=== PATIENT | male | born 1960 | race Caucasian/White ===

== ENCOUNTER 2017-07-17 07:15 | Inpatient (IN) | payer BC ==
[2017-07-17] VITALS (7 sets, daily range): BP systolic 125–144; BP diastolic 78–93; PULSE 64–77; TEMP 36.6–36.9; O2SAT 95–100; Ht 172.7 cm; Wt 85.3 kg
[~2017-07-17] VITALS: Ht 172.7 cm; Wt 85.3 kg
[2017-07-17] MEDS ORDERED: SODIUM CHLORIDE 0.9% 1000ML 1,000 ML IV SCH (07:48)
--- NOTE | 2017-07-17 08:09 | DIAGNOSTIC IMAGING REPORT ---
HEAD WITHOUT CONTRAST (CT) CT DOSE: 614.27 mGy.cm HISTORY: Mental status change Stroke TECHNIQUE: Multiaxial CT images of the head were performed without the use of intravenous contrast. A dose lowering technique was utilized adhering to the principles of ALARA. Comparison: None. Findings: The paranasal sinuses and mastoid air cells are clear. The calvarium and skull base are intact. The ventricles and sulci are within normal limits. There is no mass, hematoma, midline shift, or acute infarct. Impression: No acute intracranial abnormality. The above report was generated using voice recognition software. It may contain grammatical, syntax or spelling errors. Electronically signed by: Dillan Marie M.D. 07/17/2017 8:07 AM Dictated Date/Time: 07/17/2017 8:06 AM
[2017-07-17] MEDS ORDERED: METF1000 PO (08:10)
[2017-07-17] MEDS ORDERED: DOXY-300 PO (08:11)
[2017-07-17 08:12] LABS: BLOOD UREA NITROGEN 19 mg/dl (7-18); BUN/CREATININE RATIO 16.6 (10-20); CALCIUM 9.1 mg/dl (8.5-10.1); CARBON DIOXIDE 23 mmol/L (21-32); CHLORIDE 108 mmol/L (98-107); CREATININE 1.14 mg/dl (0.60-1.40); GLUCOSE 188 mg/dl (70-99); PARTIAL THROMBOPLASTIN RATIO 0.9; POTASSIUM 3.5 mmol/L (3.5-5.1); PROTHROMBIN TIME (PATIENT) 10.8 SECONDS (9.0-12.0); SODIUM 140 mmol/L (136-145)
--- NOTE | 2017-07-17 08:13 | EMERGENCY ROOM VISIT NOTE ---
History First contact with patient: 07:25 Chief Complaint: NEURO SYMPTOMS Stated Complaint: MEMORY LOSS,DIZZY,CONFUSION Nursing Triage Summary: Pt ambulatory to B2. Reports that approx 0630 he experienced some confusion. States when he woke up he had no water at home and called family members to come help him pull the well pump. present at bedside states approx [id number] pt called her 5x. Pt does not recall this. Pt unable to recall what he did yesterday or what he ate last night. Son showed pt a picture of what they worked on yesterday and that did trigger pts memory. Pt denies h/a, dizziness, lightheadedness. Pt reports he is currently taking Doxy for Lyme's. After it was started he was called and told Lyme's was neg, but to continue taking it. states that pts pajamas were soaked with sweat last night, states this happens intermittently over the past couple months. History of Present Illness The patient is a 57 year old male with a history of type 2 Diabetes, vertigo, hypertension and hypercholesterolemia who presents to the Emergency Room with complaints of memory loss, confusion and headache. His reports that he was last well at 6:30AM. As per his , this morning, he woke up drenched in sweat , which has been happening intermittently in the last month, but has never been worked up by a doctor. He was behaving normally, not having any trouble with gait, speech, vision or limb weakness. He then realized he had no water in the house and called his family members to come help him pull up the well pump. The well is out in the yard. Afterwards, he went to work and subsequently became confused, called his son and multiple times as he could not recall where they were, where he was, and the events of the morning. When asked in the ED what he last remembers, he is unable to recall events in the morning or last night. Once his son and reminded him of previous events, he was able to recall them. He denies abdominal pain, chest pain, shortness of breath, and states he has otherwise been well recently. He reports an 8/10 headache over his TMJ and frontal region, and states that he frequently gets these types of headaches, however this one is worse. He is unsure of the onset. He denies photophobia, neck stiffness, or visual changes. He was recently (last week) worked up for Lyme's disease as his white cell count and MCV were found to be elevated, however his Lyme's titre came back negative. He is still taking the full course of doxycycline, and has 7 days left. Of note, he has had an unintentional 10 pound weight loss in the last month. He has type 2 diabetes, and has been on metformin for the last 2 years. No recent changes to his medications. He did not check his blood sugar levels this morning.\ He denies recent alcohol consumption and recreational drug use, and is not a smoker. No recent travel. Review of Systems See HPI for pertinent positives & negatives. A total of 10 systems reviewed and were otherwise negative. Past Medical/Surgical History Medical Problems: (1) Diabetes mellitus, type II (2) HLD (hyperlipidemia) (3) HTN (hypertension) PMH: Hypertension, Hypercholesterolemia, Vertigo Social History Smoking Status: Never Smoker Alcohol Use: occasionally Drug Use: none Marital Status: Housing Status: lives with family Occupation Status: employed Current/Historical Medications Scheduled Aspirin (Aspirin EC Low Dose), 81 MG PO DAILY Doxycycline (Monohydrate) (Doxycycline), 100 MG PO BID Lisinopril (Zestril), 40 MG PO DAILY Metformin Hcl (Glucophage), 1 TAB PO BID Rosuvastatin Calcium (Crestor), 10 MG PO DAILY Allergies No known drug allergies Physical Exam Vital Signs Date Time Temp Pulse Resp B/P (MAP) Pulse Ox O2 Delivery O2 Flow Rate FiO2 07/17/17 11:00 98 Room Air 07/17/17 10:35 69 18 142/89 98 Room Air 07/17/17 08:14 81 18 149/92 98 Room Air 07/17/17 07:40 96 Room Air 07/17/17 07:31 83 07/17/17 07:20 36.6 89 18 176/91 97 Room Air Physical Exam HEENT: Head - normocephalic and atraumatic. Pupils are equal, round, and reactive to light. Extraocular eye muscles are intact and sclera are anicteric. Ears - bilaterally patent canals with noninjected tympanic membranes and no evidence of hemotympanum. Nose - moist nasal mucosa without discharge. Mouth - moist buccal mucosa. Oropharynx is nonerythematous and there is no tonsillar exudate or edema noted. Neck: Supple; no JVD, nuchal rigidity, cervical lymphadenopathy, or auscultated bruits. Heart: Regular rate and rhythm. There is a normal S1 and S2 with no murmurs, clicks, or gallops appreciated. Lungs: Clear to auscultation bilaterally with no wheezes, rales, or rhonchi. Abdomen: Soft, completely nontender, nondistended, with good bowel sounds. There are no palpable pulsatile masses or hepatosplenomegaly. There is no guarding, rigidity, or rebound noted. Extremities: No evidence of cyanosis, clubbing, or edema. There are easily palpable peripheral pulses. Neuro:The patient is awake and alert, oriented to day, time, and place. He is unable to recall events from earlier this morning or last night, however is able to recall past events beyond this. Muscle strength is 5/5 in all 4 extremities. The patient has equal home visitor home base head start strength and equal pedal push and pull. There are no cerebellar signs. Medical Decision & Procedures ER Provider Diagnostic Interpretation: HEAD WITHOUT CONTRAST (CT) CT DOSE: 614.27 mGy.cm HISTORY: Mental status change Stroke TECHNIQUE: Multiaxial CT images of the head were performed without the use of intravenous contrast. A dose lowering technique was utilized adhering to the principles of ALARA. Comparison: None. Findings: The paranasal sinuses and mastoid air cells are clear. The calvarium and skull base are intact. The ventricles and sulci are within normal limits. There is no mass, hematoma, midline shift, or acute infarct. Impression: No acute intracranial abnormality. CHEST ONE VIEW PORTABLE CLINICAL HISTORY: Stroke COMPARISON STUDY: No previous studies for comparison. FINDINGS: The cardiac and mediastinal contours are normal. There is no evidence of focal pulmonary consolidation. There is no evidence of failure. No pleural effusions are visualized.[ IMPRESSION: No active disease in the chest. Laboratory Results 07/17/17 07:30 Red Blood Count 5.00, Mean Corpuscular Volume 81.4, Mean Corpuscular Hemoglobin 28.4, Mean Corpuscular Hemoglobin Concent 34.9, Mean Platelet Volume 12.1, Neutrophils (%) (Auto) 65.9, Lymphocytes (%) (Auto) 26.0, Monocytes (%) (Auto) 6.0, Eosinophils (%) (Auto) 1.7, Basophils (%) (Auto) 0.2, Neutrophils # (Auto) 2.76, Lymphocytes # (Auto) 1.09, Monocytes # (Auto) 0.25, Eosinophils # (Auto) 0.07, Basophils # (Auto) 0.01 07/17/17 07:30 Test 07/17/17 07:22 07/17/17 07:30 07/17/17 08:10 07/17/17 09:25 Bedside Glucose 174 mg/dl (70-99) White Blood Count 4.19 K/uL (4.8-10.8) Red Blood Count 5.00 M/uL (4.7-6.1) Hemoglobin 14.2 g/dL (14.0-18.0) Hematocrit 40.7 % (42-52) Mean Corpuscular Volume 81.4 fL (80-100) Mean Corpuscular Hemoglobin 28.4 pg (25-34) Mean Corpuscular Hemoglobin Concent 34.9 g/dl (32-36) Platelet Count 115 K/uL (130-400) Mean Platelet Volume 12.1 fL (7.4-10.4) Neutrophils (%) (Auto) 65.9 % Lymphocytes (%) (Auto) 26.0 % Monocytes (%) (Auto) 6.0 % Eosinophils (%) (Auto) 1.7 % Basophils (%) (Auto) 0.2 % Neutrophils # (Auto) 2.76 K/uL (1.4-6.5) Lymphocytes # (Auto) 1.09 K/uL (1.2-3.4) Monocytes # (Auto) 0.25 K/uL (0.11-0.59) Eosinophils # (Auto) 0.07 K/uL (0-0.5) Basophils # (Auto) 0.01 K/uL (0-0.2) RDW Standard Deviation 38.2 fL (36.4-46.3) RDW Coefficient of Variation 12.9 % (11.5-14.5) Immature Granulocyte % (Auto) 0.2 % Immature Granulocyte # (Auto) 0.01 K/uL (0.00-0.02) Platelet Estimate DECREASED Prothrombin Time 10.8 SECONDS (9.0-12.0) Prothromb Time International Ratio 1.0 (0.9-1.1) Activated Partial Thromboplast Time 23.6 SECONDS (21.0-31.0) Partial Thromboplastin Ratio 0.9 Anion Gap 9.0 mmol/L (3-11) Est Creatinine Clear Calc Drug Dose 75.4 ml/min Estimated GFR () 81.7 Estimated GFR (Non- 70.5 BUN/Creatinine Ratio 16.6 (10-20) Calcium Level 9.1 mg/dl (8.5-10.1) Total Creatine Kinase 161 U/L (39-308) Creatine Kinase MB 1.9 ng/ml (0.5-3.6) Creatine Kinase MB Ratio 1.2 (0-3.0) Troponin I < 0.015 ng/ml (0-0.045) Carboxyhemoglobin 0.0 % THgb Urine Color YELLOW Urine Appearance CLEAR (CLEAR) Urine pH 5.0 (4.5-7.5) Urine Specific [place] 1.023 (1.000-1.030) Urine Protein TRACE (NEG) Urine Glucose (UA) NEG (NEG) Urine Ketones NEG (NEG) Urine Occult Blood NEG (NEG) Urine Nitrite NEG (NEG) Urine Bilirubin NEG (NEG) Urine Urobilinogen NEG (NEG) Urine Leukocyte Esterase NEG (NEG) Urine WBC (Auto) 1-5 /hpf (0-5) Urine RBC (Auto) 0-4 /hpf (0-4) Urine Hyaline Casts (Auto) 1-5 /lpf (0-5) Urine Epithelial Cells (Auto) 0-5 /lpf (0-5) Urine Bacteria (Auto) NEG (NEG) Urine Opiates Screen NEG (NEG) Urine Methadone, Qualitative NEG (NEG) Urine Barbiturates NEG (NEG) Urine Phencyclidine (PCP) Level NEG (NEG) Ur Amphetamine/Methamphetamine NEG (NEG) MDMA (Ecstasy) Screen NEG (NEG) Urine Benzodiazepines Screen NEG (NEG) Urine Cocaine Metabolite NEG (NEG) Urine Marijuana (THC) NEG (NEG) Test 07/17/17 09:44 CSF Color COLORLESS CSF Appearance CLEAR CSF WBC 11 /uL (0-5) CSF RBC 0 /uL (0) CSF Polynuclear WBCs 0.0 % CSF Mononuclear WBCs 100.0 % CSF Xanthrochromic NO XANTHOCHROMIA CSF Cell Count Tube # 4 CSF Chemistry Tube # 2 CSF Glucose 76 mg/dl (40-70) CSF Total Protein 60.0 mg/dl (15.0-45.0) Medications Administered Medications (Trade) Dose Ordered Sig/Jennifer Route Start Time Stop Time Status Last Admin Dose Admin Sodium Chloride 1,000 ml @ 100 mls/hr Q10H IV 07/17/17 07:48 07/17/17 11:51 DC 07/17/17 08:10 50 MLS/HR ED Course 7:35: The patient was seen and evaluated in room B2. 7:45: The case was discussed with the attending doctor, Dr. Zuniga 8:00: The patient was seen and evaluated again with Dr. Zuniga 8:25: The patient was re-evaluated. He is sitting up comfortably. He reports his headache remains but that he does not wish to have any medication for it. He is better able to recall events from last night, but is still unable to remember events this morning. 9:15: Consulted with Dr. Espana (neurology), and given the fact that his headache and memory loss have persisted, she recommends admitting him, and doing a lumbar puncture as well as an MRI with and without contrast. 9:25: I explained the plan to the patient, and he consented to being admitted, the LP and MRI. 9:35: Lumbar puncture performed with Dr. Zuniga. The patient tolerated the procedure well and vitals post-procedure were normal, see procedure note for full details. 10:00: Spoke with hospitalist Lexi Blanchard regarding admitting Mr. Perez for further workup Medical Decision Mr. Perez is a 57 year old gentleman with a history of type 2 diabetes, hypertension, and hypercholesterolemia who presented to the ED with memory loss , confusion and a headache. His CBC shows thrombocytopenia with a platelet level of 115, but otherwise his CMP, carboxyhemoglobin and coagulation panel are normal. I discussed the case with Dr. Espana who agrees that in light of his headache, and the fact that he is still unable to recall the events of his morning, he warrants admission and further workup including a spinal tap, and MRI with and without contrast. Impression Primary Impression: Memory deficit Additional Impression: Headache Departure Information Dispostion Admitted as an inpatient Referrals Valentino Fan D.O. (PCP) Patient Instructions My [facility] Resident Tracking Resident Involvement: Resident Care Provided Care Provided: Adult Hospital Medicine Problem Qualifiers
--- NOTE | 2017-07-17 08:15 | DIAGNOSTIC IMAGING REPORT ---
CHEST ONE VIEW PORTABLE CLINICAL HISTORY: Stroke COMPARISON STUDY: No previous studies for comparison. FINDINGS: The cardiac and mediastinal contours are normal. There is no evidence of focal pulmonary consolidation. There is no evidence of failure. No pleural effusions are visualized.[ IMPRESSION: No active disease in the chest. Electronically signed by: Logan Goel M.D. 07/17/2017 8:13 AM Dictated Date/Time: 07/17/2017 8:11 AM
[2017-07-17 08:22] LABS: CKMB/CK RATIO 1.2 (0-3.0)
[2017-07-17 08:36] LABS: HEMATOCRIT 40.7 % (42-52); MEAN CELL VOLUME 81.4 fL (80-100); MEAN CORPUSCULAR HEMOGLOBIN 28.4 pg (25-34); MEAN CORPUSCULAR HGB CONC 34.9 g/dl (32-36); MEAN PLATELET VOLUME 12.1 fL (7.4-10.4); PLATELET COUNT 115 K/uL (130-400); WHITE BLOOD COUNT 4.19 K/uL (4.8-10.8)
[2017-07-17 08:37] LABS: BASO % 0.2 %; BASO ABS # 0.01 K/uL (0-0.2); COMPLETE YES; EOS % 1.7 %; IG% 0.2 %; LYMPH ABS # 1.09 K/uL (1.2-3.4); NEUT % 65.9 %; PLT ESTIMATE DECREASED
--- NOTE | 2017-07-17 09:15 | EMERGENCY ROOM VISIT NOTE ---
ED Visit Note First contact with patient: 07:25 Resident Physician Supervision Note: I was present with Dr. Chen during the history and exam. I discussed the case with the resident and agree with the findings and plan as documented in the note. Documented By: Osvaldo Zuniga
[2017-07-17 09:40] LABS: URINE APPEARANCE CLEAR (CLEAR); URINE BILIRUBIN NEG (NEG); URINE COLOR YELLOW; URINE EPITHELIAL CELL AUTO 0-5 /lpf (0-5); URINE NITRITE NEG (NEG); URINE SPECIFIC GRAVITY 1.023 (1.000-1.030); UROBILINOGEN NEG (NEG); ZZUR CULT IF INDIC CLEAN CATCH NO
[2017-07-17 09:46] LABS: MANUAL MICROSCOPIC REQUIRED? NO; REVIEW REQ? NO
--- NOTE | 2017-07-17 09:49 | Procedure Note ---
Procedure Note Procedure Date Jul 17, 2017. Procedure Description Procedure Name: Lumbar Puncture Indication: Headache and altered mental status. Verbal consent was obtained after the risks and benefits were explained, including but not limited to headache, bleeding/clotting, scarring, infection, pain, and bone/joint/nerve damage. At this time, the risks of the procedure are less than the risks of NOT performing the procedure. A time out was taken and the correct patient and site identified. The patient was placed in the seated position and the back was prepped with betadine and draped in the standard fashion. The L3 intervertebral space was identified, anesthetized locally with 1 % lidocaine without epinephrine, and the spinal needle was inserted through the skin with the bevel parallel to the dural fibers. The needle was carefully advanced into the lumbar cistern and 4 tubes of clear CSF was obtained. The stylet was replaced and the needle was removed. A bandaid was placed and the patient was placed in the supine position. The patient tolerated the procedure well and there were no complications. Time of procedure: 09:30 Performed by: attending, resident Indications: diagnostic Contraindications: none Complications: none Patient tolerated procedure: well Post-procedure vital signs: reviewed and stable
[2017-07-17 10:16] LABS: BENZODIAZEPINE, URINE NEG (NEG); COCAINE,URINE NEG (NEG); PHENCYCLIDINE, URINE NEG (NEG)
[2017-07-17] MEDS ORDERED: GLUCAGON FOR INJ 1 MG VIAL SQ PRN (11:15)
[2017-07-17] MEDS ORDERED: GLUCOSE 10 TABS/TUBE PO PRN (11:15)
[2017-07-17] MEDS ORDERED: ONDANSETRON INJ 2 MG/ML 2 ML VIAL IV PRN (11:15)
[2017-07-17] MEDS ORDERED: ACETAMINOPHEN 325 MG TAB PO PRN (11:15)
[2017-07-17] MEDS ORDERED: GLUCOSE 40% GEL 15 GM TUBE PO PRN (11:15)
[2017-07-17] MEDS ORDERED: DEXTROSE 50% 50 ML SYR IV PRN (11:15)
[2017-07-17 11:21] LABS: CSF APPEARANCE CLEAR; CSF COLOR COLORLESS
[2017-07-17 11:22] LABS: CSF XANTHOCHROMIC NO XANTHOCHROMIA
--- NOTE | 2017-07-17 11:36 | History and Physical ---
History & Physical Date & Time of Service: Jul 17, 2017 at 11:23 Chief Complaint: Memory Loss,Dizzy,Confusion Primary Care Physician: Valentino Fan D.O. History of Present Illness Source: patient, spouse, clinic records, hospital records This is a 57yo M with a PMH of DM II, HTN and HLD who presents after a 45 minute period of memory loss and confusion earlier this morning. Patient woke up around 5am in a normal state of health. Per , patient had sweat through pajamas during the night, but states that has occurred multiple times in the past few months. The patient then noticed his water was not working so he called his son to help adjust the water pump. Afterwards, the patient's son left and he worked in the garage. From 6:40-7:10am, patient called his 5 times asking where he was and where she was. Told her that he didn't feel normal. Did not remember the proceeding events of the morning or that his son had just left. called son to bring the patient into the ER for further evaluation. Patient does not remember the ride over to the hospital or the time spent in the waiting room. Memory impairment resolved once patient got to ER room but is still unclear about previous events. Currently, patient endorses feeling "flushed" in the face and has a 6/10 throbbing headache above bilateral ears. Denies fever, chills, lightheadedness, visual changes, neck stiffness, difficulty with speech, palpitations, CP, SOB, abd pain, nausea/vomiting, difficulty with ambulation or any focal neurological deficits. Has chronic headaches but pain is more severe today. Denies any history of stroke, heart disease. Endorses an intentional 10# weight loss in the last few months. Last week, patient was evaluated by PCP for facial pain, headache, chills. Was started on doxycycline prophylactically for Lyme disease. Titer came back negative but patient was encouraged to complete course of antibiotics due to slight leukocytosis of 11.2. Past Medical/Surgical History Medical Problems: (1) Diabetes mellitus, type II Status: Chronic (2) HLD (hyperlipidemia) Status: Chronic (3) HTN (hypertension) Status: Chronic Family History Diabetes mellitus FATHER Hypertension FATHER Social History Smoking Status: Never Smoker Alcohol Use: socially (1-2 drinks/month ) Drug Use: none Marital Status: Housing status: lives with significant other Occupational Status: employed Multi-Drug Resistant Organisms History of MDRO: No Allergies Coded Allergies: No Known Allergies (Verified , 07/17/17) Home Medications Scheduled Aspirin (Aspirin EC Low Dose), 81 MG PO DAILY Doxycycline (Monohydrate) (Doxycycline), 100 MG PO BID Lisinopril (Zestril), 40 MG PO DAILY Metformin Hcl (Glucophage), 1 TAB PO BID Rosuvastatin Calcium (Crestor), 10 MG PO DAILY Review of Systems Ten systems reviewed and negative except as noted in the HPI. Physical Exam Vital Signs Date Time Temp Pulse Resp B/P (MAP) Pulse Ox O2 Delivery O2 Flow Rate FiO2 07/17/17 11:00 98 Room Air 07/17/17 10:35 69 18 142/89 98 Room Air 07/17/17 08:14 81 18 149/92 98 Room Air 07/17/17 07:40 96 Room Air 07/17/17 07:31 83 07/17/17 07:20 36.6 89 18 176/91 97 Room Air General Appearance: WD/WN, no apparent distress Head: normocephalic, atraumatic Eyes: normal inspection, PERRL, EOMI, sclerae normal (Conjunctiva normal ) ENT: normal ENT inspection, hearing grossly normal, pharynx normal (Moist mucous membranes ), + pertinent finding (Neck with full ROM) Neck: supple, no adenopathy, thyroid normal, trachea midline Respiratory/Chest: chest non-tender, lungs clear, normal breath sounds, no respiratory distress, no accessory muscle use Cardiovascular: regular rate, rhythm, no edema, no murmur, normal peripheral pulses Abdomen/GI: normal bowel sounds, non tender, soft, no organomegaly Back: normal inspection Extremities/Musculoskelatal: normal inspection, no calf tenderness, normal capillary refill, no pedal edema Neurologic/Psych: service advisor II-XII nml as tested, no motor/sensory deficits (Normal gait. Full ROM and 5/5 NUBIA throughout. No abnormal cerebellar tests. ), alert, normal mood/affect, oriented x 3 Skin: normal color, warm/dry, no rash Diagnostics Laboratory Results Results Past 24 Hours Test 07/17/17 07:22 07/17/17 07:30 07/17/17 08:10 07/17/17 09:25 Range/Units Bedside Glucose 174 70-99 mg/dl White Blood Count 4.19 4.8-10.8 K/uL Red Blood Count 5.00 4.7-6.1 M/uL Hemoglobin 14.2 14.0-18.0 g/dL Hematocrit 40.7 42-52 % Mean Corpuscular Volume 81.4 80-100 fL Mean Corpuscular Hemoglobin 28.4 25-34 pg Mean Corpuscular Hemoglobin Concent 34.9 32-36 g/dl Platelet Count 115 130-400 K/uL Mean Platelet Volume 12.1 7.4-10.4 fL Neutrophils (%) (Auto) 65.9 % Lymphocytes (%) (Auto) 26.0 % Monocytes (%) (Auto) 6.0 % Eosinophils (%) (Auto) 1.7 % Basophils (%) (Auto) 0.2 % Neutrophils # (Auto) 2.76 1.4-6.5 K/uL Lymphocytes # (Auto) 1.09 1.2-3.4 K/uL Monocytes # (Auto) 0.25 0.11-0.59 K/uL Eosinophils # (Auto) 0.07 0-0.5 K/uL Basophils # (Auto) 0.01 0-0.2 K/uL RDW Standard Deviation 38.2 36.4-46.3 fL RDW Coefficient of Variation 12.9 11.5-14.5 % Immature Granulocyte % (Auto) 0.2 % Immature Granulocyte # (Auto) 0.01 0.00-0.02 K/uL Platelet Estimate DECREASED Prothrombin Time 10.8 9.0-12.0 SECONDS Prothromb Time International Ratio 1.0 0.9-1.1 Activated Partial Thromboplast Time 23.6 21.0-31.0 SECONDS Partial Thromboplastin Ratio 0.9 Sodium Level 140 136-145 mmol/L Potassium Level 3.5 3.5-5.1 mmol/L Chloride Level 108 98-107 mmol/L Carbon Dioxide Level 23 21-32 mmol/L Anion Gap 9.0 3-11 mmol/L Blood Urea Nitrogen 19 7-18 mg/dl Creatinine 1.14 0.60-1.40 mg/dl Est Creatinine Clear Calc Drug Dose 75.4 ml/min Estimated GFR () 81.7 Estimated GFR (Non- 70.5 BUN/Creatinine Ratio 16.6 10-20 Random Glucose 188 70-99 mg/dl Calcium Level 9.1 8.5-10.1 mg/dl Total Creatine Kinase 161 39-308 U/L Creatine Kinase MB 1.9 0.5-3.6 ng/ml Creatine Kinase MB Ratio 1.2 0-3.0 Troponin I < 0.015 0-0.045 ng/ml Carboxyhemoglobin 0.0 % THgb Urine Color YELLOW Urine Appearance CLEAR CLEAR Urine pH 5.0 4.5-7.5 Urine Specific [place] 1.023 1.000-1.030 Urine Protein TRACE NEG Urine Glucose (UA) NEG NEG Urine Ketones NEG NEG Urine Occult Blood NEG NEG Urine Nitrite NEG NEG Urine Bilirubin NEG NEG Urine Urobilinogen NEG NEG Urine Leukocyte Esterase NEG NEG Urine WBC (Auto) 1-5 0-5 /hpf Urine RBC (Auto) 0-4 0-4 /hpf Urine Hyaline Casts (Auto) 1-5 0-5 /lpf Urine Epithelial Cells (Auto) 0-5 0-5 /lpf Urine Bacteria (Auto) NEG NEG Urine Opiates Screen NEG NEG Urine Methadone, Qualitative NEG NEG Urine Barbiturates NEG NEG Urine Phencyclidine (PCP) Level NEG NEG Ur Amphetamine/Methamphetamine NEG NEG MDMA (Ecstasy) Screen NEG NEG Urine Benzodiazepines Screen NEG NEG Urine Cocaine Metabolite NEG NEG Urine Marijuana (THC) NEG NEG Test 07/17/17 09:44 Range/Units CSF Chemistry Tube # 2 CSF Glucose 76 40-70 mg/dl CSF Total Protein 60.0 15.0-45.0 mg/dl Microbiology Results 07/17/17 Gram Stain - Final, Resulted 07/17/17 CSF Culture, Resulted Pending Diagnostic Radiology CT head: Impression: No acute intracranial abnormality. CXR normal Normal EKG, No change from prior EKG Impression Assessment and Plan This is a 57yo M with a PMH of DM II, HTN and HLD who presents after a 45 minute period of memory loss and confusion earlier this morning. Memory deficit, confusion: -Possibly due to viral meningitis vs. TIA/CVA -Neuro consulted. Recommended: -Lumbar puncture -MRI combo -LP CSF results: Elevated wbc of 11 Elevated glucose of 76 Elevated protein of 60 -Awaiting CSF culture, Lyme serology, RPR, HSV, VZV -Gram stain negative for wbc, organisms -MRI pending DM II: -Non-compliant with home regimen of Metformin 1,000mg BID -Takes 500-1,000mg total each day -Hgb a1c of 7.5 in 06/2017 -Hold home agents -SSI while in-patient -BSG checks AC HS HTN: -Continue home dose lisinopril -Monitor and add additional therapy if indicated HLD: -Continue statin DVT Ppx: Lovenox Code status: FULL PCP: Mita Dispo: Plan to return home once medically stable Patient seen in collaboration with Dr. Carr. Please see addendum. ADDENDUM: This is a 57 year old male with a PMH of HTN, DM2, HLD - presents with memory loss - loss of about 45 minutes-1 hour and could not recall this time period. Spoke with his after she went to work and she stated that he was confused about what time it was and where everyone was. He worked the morning of this incident - worked on his water well at home. By the time he arrived to the ER, he was AAOx3. Was recently placed on doxycycline for a possible URI/non-specific infection No focal deficits on exam. LP done showing possible viral etiology. Started on broad spectrum abx. and acyclovir. ID consulted MRI/MRV/MRA pending Level of Care Telemetry Advanced Directives Existing Living Will: No Existing Power of Glass Unloading Equipment Tender: No Resuscitation Status FULL RESUSCITATION VTE Prophylaxis VTE Risk Assessment Done? Y/N: Yes Risk Level: Moderate Given or contraindicated: Enoxaparin (Lovenox)SQ Social Service Consult None Apply
[2017-07-17] MEDS ORDERED: LORAZEPAM 2 MG/ML 1 ML VIAL IV SCH (12:00)
[2017-07-17 12:19] LABS: LYME DISEASE AB IGG NEG (NEG); LYME DISEASE AB IGM NEG (NEG)
[2017-07-17] MEDS ORDERED: ASPIRIN 81 MG ECTAB PO ONE (12:30)
[2017-07-17] MEDS ORDERED: ROSUVASTATIN CALCIUM 10 MG TAB PO ONE (12:30)
[2017-07-17] MEDS ORDERED: LISINOPRIL 40 MG TAB PO ONE (12:30)
--- NOTE | 2017-07-17 13:51 | Neurology Consultation ---
Neurology Consultation Date of Consultation: Jul 17, 2017. Attending Physician: Patrice Carr DO Primary Care Physician: Valentino Fan D.O. Reason for Consultation: memory deficit, stroke r/o History of Present Illness Source: patient, family, spouse Kian is a 57 year old male PMH - DM II, HTN and HLD who presents after a 45 minute period of memory loss and confusion earlier this morning. He woke up around 5am in a normal state of health. He noticed their water was not working so he called his son and son in law to help pull the submersible pump. He knows his father and the son and son in law was there but he didn't remember them leaving His states he called her 5 times asking where he was and where she was. He knew he wasn't normal but didn't know what the problem was. He had no slurred speech, facial droop, one sided weakness. He didn't remember anything until they arrived at the hospital. His son stated he kept repeating the same thing about where is his . He didn't remember being taken to the hospital but he does remember sitting in the ED and knew his son and where he was at that point. He does not smoke, minimal EtOH use and modest caffeine use. denies CP, SOB, abdominal pain, weakness, numbness tingling, N,V. He did have a headache but that is his normal TMJ pain, nothing new. No history of stroke or seizure. no falls, +nocturnal night sweats x 3 nights Past Medical/Surgical History Medical Problems: (1) Headache Status: Acute (2) Memory deficit Status: Acute Social History Alcohol Use: socially (1-2 drinks/month ) Drug Use: none Marital Status: Housing Status: lives with family Occupation Status: employed Allergies Coded Allergies: No Known Allergies (Verified , 07/17/17) Current Inpatient Medications Current Inpatient Medications Medications (Trade) Dose Ordered Sig/Jennifer Route Start Time Stop Time Status Last Admin Dose Admin Acetaminophen (Tylenol Tab) 650 mg Q4H PRN PO 07/17/17 11:15 08/16/17 11:14 Ondansetron HCl (Zofran Inj) 4 mg Q6H PRN IV 07/17/17 11:15 08/16/17 11:14 Insulin Aspart (novoLOG ASPART) SLIDING SCALE If C... ACHS SC 07/17/17 16:00 08/16/17 15:59 Glucose (Glucose 40% Gel) 15-30 GRAMS 15 GRAMS... UD PRN PO 07/17/17 11:15 08/16/17 11:14 Glucose (Glucose Chew Tab) 4-8 Tablets 4 Tabl... UD PRN PO 07/17/17 11:15 08/16/17 11:14 Dextrose (Dextrose 50% 50ML Syringe) 25-50ML OF 50% DW IV FOR... UD PRN IV 07/17/17 11:15 08/16/17 11:14 Glucagon (Glucagon Inj) 1 mg UD PRN SQ 07/17/17 11:15 08/16/17 11:14 Lorazepam (Ativan Inj) 1 mg TODAY@1200 IV 07/17/17 12:00 07/17/17 23:59 07/17/17 13:23 1 MG Enoxaparin Sodium (Lovenox Inj) 40 mg Q24H SC 07/17/17 14:00 08/16/17 13:59 Aspirin (Ecotrin Tab) 81 mg DAILY PO 07/18/17 09:00 08/17/17 08:59 Lisinopril (Zestril Tab) 40 mg DAILY PO 07/18/17 09:00 08/17/17 08:59 Rosuvastatin Calcium (Crestor Tab) 10 mg DAILY PO 07/18/17 09:00 08/17/17 08:59 Doxycycline Hyclate (Vibramycin Cap) 100 mg BID PO 07/17/17 21:00 07/27/17 20:59 Miscellaneous (Iv Fluids Completed) 1 ea PRN PRN N/A 07/17/17 12:15 07/17/18 12:14 Physical Exam Vital Signs (Past 24 Hrs): Date Time Temp Pulse Resp B/P (MAP) Pulse Ox O2 Delivery O2 Flow Rate FiO2 07/17/17 12:02 36.9 73 18 144/93 (110) 95 Room Air 07/17/17 11:00 98 Room Air 07/17/17 10:35 69 18 142/89 98 Room Air 07/17/17 08:14 81 18 149/92 98 Room Air 07/17/17 07:40 96 Room Air 07/17/17 07:31 83 07/17/17 07:20 36.6 89 18 176/91 97 Room Air Physical Exam: Constitutional: appearance nourished, healthy and normal Ears, Nose, Mouth and Throat: mucous membranes moist, no injection and skin normal, eyes normal Cardiovascular: normal S-1 and S-2 and regular rate and rhythm Respiratory: clear to auscultation (CTA) and no rales, rhonchi or wheeze Musculoskeletal: no peripheral edema and good distal pulses Skin: no stigmata of neurocutaneous disease noted and normal and intact Eyes: extraocular muscles intact (EOMI) and pupils equal, round and reactive to light (PERRL) NEUROLOGIC EXAMINATION: Mental status: Alert and interactive Oriented to full date and location Oriented to person Speech fluent with no evidence of aphasia Cranial Nerves smile eye brow raise symmetric, tongue midline Reflexes: Deep tendon reflexes were symmetrical and graded 2/5. Sensory: light touch intact Coordination: finger to nose no bi pass Gait/Stance: Posture normal. Gait normal: with steady with steps, base, turning,and tandem gait. Motor: Negative for pronator drift of out stretched arms with eyes closed. 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 hip flex plantar flex ext 5/5 bilaterally Laboratory Results Past 24 Hours: 07/17/17 07:30 Red Blood Count 5.00, Mean Corpuscular Volume 81.4, Mean Corpuscular Hemoglobin 28.4, Mean Corpuscular Hemoglobin Concent 34.9, Mean Platelet Volume 12.1, Neutrophils (%) (Auto) 65.9, Lymphocytes (%) (Auto) 26.0, Monocytes (%) (Auto) 6.0, Eosinophils (%) (Auto) 1.7, Basophils (%) (Auto) 0.2, Neutrophils # (Auto) 2.76, Lymphocytes # (Auto) 1.09, Monocytes # (Auto) 0.25, Eosinophils # (Auto) 0.07, Basophils # (Auto) 0.01 07/17/17 07:30 Test 07/17/17 07:30 07/17/17 08:10 07/17/17 09:25 07/17/17 09:44 White Blood Count 4.19 K/uL (4.8-10.8) Red Blood Count 5.00 M/uL (4.7-6.1) Hemoglobin 14.2 g/dL (14.0-18.0) Hematocrit 40.7 % (42-52) Mean Corpuscular Volume 81.4 fL (80-100) Mean Corpuscular Hemoglobin 28.4 pg (25-34) Mean Corpuscular Hemoglobin Concent 34.9 g/dl (32-36) Platelet Count 115 K/uL (130-400) Mean Platelet Volume 12.1 fL (7.4-10.4) Neutrophils (%) (Auto) 65.9 % Lymphocytes (%) (Auto) 26.0 % Monocytes (%) (Auto) 6.0 % Eosinophils (%) (Auto) 1.7 % Basophils (%) (Auto) 0.2 % Neutrophils # (Auto) 2.76 K/uL (1.4-6.5) Lymphocytes # (Auto) 1.09 K/uL (1.2-3.4) Monocytes # (Auto) 0.25 K/uL (0.11-0.59) Eosinophils # (Auto) 0.07 K/uL (0-0.5) Basophils # (Auto) 0.01 K/uL (0-0.2) RDW Standard Deviation 38.2 fL (36.4-46.3) RDW Coefficient of Variation 12.9 % (11.5-14.5) Immature Granulocyte % (Auto) 0.2 % Immature Granulocyte # (Auto) 0.01 K/uL (0.00-0.02) Platelet Estimate DECREASED Prothrombin Time 10.8 SECONDS (9.0-12.0) Prothromb Time International Ratio 1.0 (0.9-1.1) Activated Partial Thromboplast Time 23.6 SECONDS (21.0-31.0) Partial Thromboplastin Ratio 0.9 Anion Gap 9.0 mmol/L (3-11) Est Creatinine Clear Calc Drug Dose 75.4 ml/min Estimated GFR () 81.7 Estimated GFR (Non- 70.5 BUN/Creatinine Ratio 16.6 (10-20) Calcium Level 9.1 mg/dl (8.5-10.1) Total Creatine Kinase 161 U/L (39-308) Creatine Kinase MB 1.9 ng/ml (0.5-3.6) Creatine Kinase MB Ratio 1.2 (0-3.0) Troponin I < 0.015 ng/ml (0-0.045) Lyme Disease IgG Antibody NEG (NEG) Lyme Disease IgM Antibody NEG (NEG) Carboxyhemoglobin 0.0 % THgb Urine Color YELLOW Urine Appearance CLEAR (CLEAR) Urine pH 5.0 (4.5-7.5) Urine Specific [place] 1.023 (1.000-1.030) Urine Protein TRACE (NEG) Urine Glucose (UA) NEG (NEG) Urine Ketones NEG (NEG) Urine Occult Blood NEG (NEG) Urine Nitrite NEG (NEG) Urine Bilirubin NEG (NEG) Urine Urobilinogen NEG (NEG) Urine Leukocyte Esterase NEG (NEG) Urine WBC (Auto) 1-5 /hpf (0-5) Urine RBC (Auto) 0-4 /hpf (0-4) Urine Hyaline Casts (Auto) 1-5 /lpf (0-5) Urine Epithelial Cells (Auto) 0-5 /lpf (0-5) Urine Bacteria (Auto) NEG (NEG) Urine Opiates Screen NEG (NEG) Urine Methadone, Qualitative NEG (NEG) Urine Barbiturates NEG (NEG) Urine Phencyclidine (PCP) Level NEG (NEG) Ur Amphetamine/Methamphetamine NEG (NEG) MDMA (Ecstasy) Screen NEG (NEG) Urine Benzodiazepines Screen NEG (NEG) Urine Cocaine Metabolite NEG (NEG) Urine Marijuana (THC) NEG (NEG) CSF Color COLORLESS CSF Appearance CLEAR CSF WBC 11 /uL (0-5) CSF RBC 0 /uL (0) CSF Polynuclear WBCs 0.0 % CSF Mononuclear WBCs 100.0 % CSF Xanthrochromic NO XANTHOCHROMIA CSF Cell Count Tube # 4 CSF Chemistry Tube # 2 CSF Glucose 76 mg/dl (40-70) CSF Total Protein 60.0 mg/dl (15.0-45.0) Test 07/17/17 11:59 07/17/17 12:07 Bedside Glucose 152 mg/dl (70-99) Imaging CT head- No acute intracranial abnormality. Impression 57 year old male lapse of memory x 45 minutes Plan 1. LP done in ED. 2. labs pending from CSF- WBC 11 3. MRI brain pending 4. stroke r/o pending 5. continue HTN, DL, DM control 6. further recommendations to follow I have seen and discussed above patient with Dr Carol Patterson, neurology Pt seen and examined. 10 d of prodromal sense of fever, myalgias, headache (mild ), others at home ill with similar sx. As outpt approx 10 d ago wbc 11.2 and lyme neg, given doxycycline. Today approx 1/2 to 1 hour episode of mostly unwitnessed confusion. Kept calling ,asking where she was, forgot he had worked at the house, asking about that project. There was no change in speech, language or observed weakness. No evidence at the home that he had fallen. His memory started returning after he arrived in ER but he had a severe throbbing headache. While he has had moderately persistent nonthrobbing headaches for several months he has no hx of severe or throbbing headache. DE SOUZA has resolved and period of amnesia is sepideh. MRI brain nml, WBc mildly low. CSF WBC 11 , with mildly elevated total protein. Exam is normal, no evidence of trauma, bruising, tongue biting. No aphasia. Oriented, memory 3/3 in at 3 min. This episode has many features of transient global amnesia the differential of which includes TIA, seizure and confusional migraine. An appropriate workup focused on vascular etiologies seizure ordered. This is complicated by a prodromal illness with elevated WBC in csf which could represent a viral meningitis or a partially tx bacterial meningitis, parameningeal focus. I discussed with Dr Carr and rec empiric antibiotics and possible ID consult. I would also rec an MRV of the head and MRA of [id number] with carotid US. Rec asa as you are doing. Doubt hypoglycemia given nml glucose an admission and lack of diaphoresis. MARCELINO Patterson MD
[2017-07-17] MEDS ORDERED: GADAVIST IV PRN (14:15)
--- NOTE | 2017-07-17 14:21 | DIAGNOSTIC IMAGING REPORT ---
BRAIN COMBO HISTORY: 57 years-old Male MRI brain with and without contrast acute memory loss with dizziness and headache. COMPARISON: CT head 07/17/2017 TECHNIQUE: Multiplanar multisequence MRI the brain was obtained both with and without the use of 8.5 mL Gadavist FINDINGS: No restricted diffusion to suggest acute ischemia. Midline structures including the corpus callosum, brainstem, optic chiasm, infundibulum, pituitary and pineal glands are unremarkable as seen on the sagittal T1 sequence. No cerebellar tonsillar herniation. Mild uncovertebral spurring of the imaged cervical spine. No acute intracranial hemorrhage, midline shift, abnormal extra-axial collections, hydrocephalus or intracranial mass. No significant parenchymal signal abnormalities. No abnormal intra-axial or extra-axial enhancement. Flow voids at the level the skull base appear patent. Orbits are symmetric. Mastoid air cells are clear. Moderate mucosal thickening of the left maxillary sinus. Mild ethmoid and right maxillary sinus disease. The scalp, soft tissues and calvarium are unremarkable. IMPRESSION: 1. No acute intracranial abnormality. No acute ischemia or abnormal enhancement. 2. Maxillary and ethmoid sinus disease as above. The above report was generated using voice recognition software. It may contain grammatical, syntax or spelling errors. Electronically signed by: Daniel Ann M.D. 07/17/2017 2:20 PM Dictated Date/Time: 07/17/2017 2:14 PM
[2017-07-17] MEDS: ENOXAPARIN 40 MG/0.4 ML SYR SC SCH (14:50)
[2017-07-17] MEDS ORDERED: DEXTROSE 5% IV SCH (16:15)
[2017-07-17] MEDS ORDERED: CEFTRIAXONE SOD IV SCH (16:15)
[2017-07-17] MEDS ORDERED: VANCOMYCIN CONSULT ACTIVE PRN (16:30)
[2017-07-17] MEDS ORDERED: VANCOMYCIN INJ 2,250 MG in SODIUM CHLORIDE 0.9% 500ML 500 ML IV ONE (17:00)
[2017-07-17] MEDS: IV FLUIDS COMPLETED PRN ×2 (17:38→21:21)
[2017-07-17] MEDS: INSULIN ASPART 100 UNITS/ML 3 ML PEN SC SCH ×2 (18:09→20:45)
--- NOTE | 2017-07-17 19:26 | Pharmacy Progress Note ---
Pharmacy Abx Initial Consult Date of Service Jul 17, 2017. Pharmacy Dosing Scope Date of Consult: 07/17/17 Consultation requested by: Dr. Carr Pharmacy is consulted to initiate Vancomycin IV dosing therapy, order appropriate labs and adjust drug dose/frequency. Subjective The patient is a 57 year old male admitted on Jul 17, 2017 at 11:01. Objective Height (Feet): 5 Height (Inches): 8.00 Weight (Kilograms): 86.100 Vital Signs (Past 12Hrs) Vital Signs Past 12 Hours Date Time Temp Pulse Resp B/P (MAP) Pulse Ox O2 Delivery O2 Flow Rate FiO2 07/17/17 15:09 36.6 77 18 135/90 (105) 97 Room Air 07/17/17 12:02 36.9 73 18 144/93 (110) 95 Room Air 07/17/17 12:00 Room Air 07/17/17 11:00 98 Room Air 07/17/17 10:35 69 18 142/89 98 Room Air 07/17/17 08:14 81 18 149/92 98 Room Air 07/17/17 07:40 96 Room Air 07/17/17 07:31 83 07/17/17 07:20 36.6 89 18 176/91 97 Room Air Lab Results (24Hrs) Item Value Date Time Creatinine 1.14 mg/dl 07/17/17 0730 Est Creatinine Clear Calc Drug Dose 75.4 ml/min 07/17/17 0730 Estimated GFR () 81.7 07/17/17 0730 Estimated GFR (Non- 70.5 07/17/17 0730 Laboratory Tests (24 Hours) Test 07/17/17 07:30 White Blood Count 4.19 K/uL (4.8-10.8) L Red Blood Count 5.00 M/uL (4.7-6.1) Hemoglobin 14.2 g/dL (14.0-18.0) Hematocrit 40.7 % (42-52) L Mean Corpuscular Volume 81.4 fL (80-100) Mean Corpuscular Hemoglobin 28.4 pg (25-34) Mean Corpuscular Hemoglobin Concent 34.9 g/dl (32-36) Platelet Count 115 K/uL (130-400) L Mean Platelet Volume 12.1 fL (7.4-10.4) H Neutrophils (%) (Auto) 65.9 % Lymphocytes (%) (Auto) 26.0 % Monocytes (%) (Auto) 6.0 % Eosinophils (%) (Auto) 1.7 % Basophils (%) (Auto) 0.2 % Neutrophils # (Auto) 2.76 K/uL (1.4-6.5) Lymphocytes # (Auto) 1.09 K/uL (1.2-3.4) L Monocytes # (Auto) 0.25 K/uL (0.11-0.59) Eosinophils # (Auto) 0.07 K/uL (0-0.5) Basophils # (Auto) 0.01 K/uL (0-0.2) Total Creatine Kinase 161 U/L (39-308) Micro Results Item Value Date Time CSF Appearance CLEAR 07/17/17943 CSF Color COLORLESS 07/17/17943 CSF WBC 11 /uL *H 07/17/17943 CSF RBC 0 /uL 07/17/17943 CSF Cell Count Tube # 4 07/17/17943 CSF Mononuclear WBCs 100.0 % 07/17/17943 CSF Xanthrochromic NO XANTHOCHROMIA 07/17/17943 CSF Polynuclear WBCs 0.0 % 07/17/17943 Date/Time Source Procedure Growth Status 07/17/17 09:44 Cerebral Spinal Fluid Gram Stain - Final Resulted 07/17/17 09:44 Cerebral Spinal Fluid CSF Culture Pending Resulted Risk Factors for Resistance * Antimicrobial use within the last 90 days Doxycycline 100mg bid Assessment & Plan Assessment 57 year old male with a PMH of DM II, HTN and HLD who presents after a 45 minute period of memory loss and confusion earlier this morning. Possibly due to viral or bacterial meningitis vs. TIA/CVA. Patient had been ill for 10 days and had received doxycycline 100mg po bid as an outpatient. Patient also receiving acyclovir 750mg IV q8 hrs (11mg/kg/dose IBW), Ceftriaxone 2 grams IV q 24 hrs and Ampicillin 2grams IV q4hrs (12 gram per day per ISDA guidelines for meningitis) along with the vancomycin. Plan Vancomycin for treatment of Meningitis Vancomycin IV * Loading dose: 2250 mg (26 mg/kg) given 07/17/17 @18:11 * Maintenance dose: 1250 mg IV (14.5 mg/kg) every 12 hours * Goal trough level for meningitis : 15 to 20 mcg/mL * Random level ordered for 07/18/17 with am labs Pharmacy will continue to follow and will adjust dose/frequency as necessary. Thank you.
[2017-07-17] MEDS: DOXYCYCLINE HYCLATE 100 MG CAP PO SCH (20:44)
[2017-07-17] MEDS: ACYCLOVIR SOD INJ 750 MG in DEXTROSE 5% 250ML 250 ML IV SCH (20:44)
[2017-07-17] MEDS: AMPICILLIN IV 2,000 MG in SODIUM CHLOR 0.9% AD-VAN 100ML 100 ML IV SCH (21:14)
--- NOTE | 2017-07-17 23:02 | DIAGNOSTIC IMAGING REPORT ---
Brain MRA HISTORY: severe headache, r/o aneurysm TECHNIQUE: 3-D [id number] MRA of the brain was performed without contrast. COMPARISON STUDY: None. FINDINGS: Visualized intracranial internal carotid arteries, distal vertebral arteries, and basilar artery are widely patent. There is no significant stenosis, occlusion, or aneurysm seen within the bilateral ACAs, MCAs, or internist. IMPRESSION: No significant stenosis, occlusion, or aneurysm within the [place] of [place]. Electronically signed by: Thomas Shaffer M.D. 07/17/2017 11:01 PM Dictated Date/Time: 07/17/2017 10:59 PM
--- NOTE | 2017-07-17 23:05 | DIAGNOSTIC IMAGING REPORT ---
MRV HEAD WITHOUT CONTRAST HISTORY: severe headache, poss sz r/o sinus thrombosis TECHNIQUE: MRV of the brain was performed according to standard departmental protocol without the use of contrast. COMPARISON STUDY: None. FINDINGS: The superior sagittal sinus, straight sinus, vein of [place], internal cerebral veins, transverse sinuses, sigmoid sinuses, and visualized internal jugular veins are patent. The inferior sagittal sinus also appears patent. IMPRESSION: No evidence for dural venous sinus thrombosis Electronically signed by: Thomas Shaffer M.D. 07/17/2017 11:04 PM Dictated Date/Time: 07/17/2017 11:02 PM
[2017-07-18] VITALS (7 sets, daily range): BP systolic 105–142; BP diastolic 67–80; PULSE 65–71; TEMP 36.6–36.8; O2SAT 95–99
[2017-07-18] MEDS: AMPICILLIN IV 2,000 MG in SODIUM CHLOR 0.9% AD-VAN 100ML 100 ML IV SCH ×4 (01:26→14:37)
[2017-07-18] MEDS: ACYCLOVIR SOD INJ 750 MG in DEXTROSE 5% 250ML 250 ML IV SCH ×2 (02:08→09:25)
[2017-07-18 05:38] LABS: HEMATOCRIT 39.1 % (42-52); MEAN CELL VOLUME 82.7 fL (80-100); MEAN CORPUSCULAR HEMOGLOBIN 28.5 pg (25-34); MEAN CORPUSCULAR HGB CONC 34.5 g/dl (32-36); MEAN PLATELET VOLUME 11.4 fL (7.4-10.4); PLATELET COUNT 117 K/uL (130-400); RED BLOOD COUNT 4.73 M/uL (4.7-6.1); WHITE BLOOD COUNT 5.72 K/uL (4.8-10.8)
[2017-07-18 05:47] LABS: PROTHROMBIN TIME (PATIENT) 11.2 SECONDS (9.0-12.0)
[2017-07-18] MEDS ORDERED: VANCOMYCIN INJ 1,250 MG in SODIUM CHLORIDE 0.9% 250ML 250 ML IV SCH (06:00)
[2017-07-18 06:24] LABS: BUN/CREATININE RATIO 16.4 (10-20); CALCIUM 8.6 mg/dl (8.5-10.1); CREATININE 0.95 mg/dl (0.60-1.40); POTASSIUM 4.1 mmol/L (3.5-5.1)
--- NOTE | 2017-07-18 06:32 | DIAGNOSTIC IMAGING REPORT ---
CAROTID DOPPLER NECK ART HISTORY: Mental status change tia COMPARISON: None. TECHNIQUE: Real-time, grayscale, and color Doppler sonography of the carotid arteries was performed. Imaging reviewed in the transverse and longitudinal planes. All measurements were calculated based on NASCET criteria. FINDINGS: Antegrade flow is seen in the bilateral vertebral arteries. The brachial pressures are hemodynamically similar. Considerable plaque formation bilaterally The peak systolic velocity within the right ICA is 81. The right systolic ratio is 1.1. The peak systolic velocity within the left ICA is 92. The left systolic ratio is 1.2. IMPRESSION: No hemodynamically significant stenosis seen within the carotid arteries. Significant plaque formation bilaterally The above report was generated using voice recognition software. It may contain grammatical, syntax or spelling errors. Electronically signed by: Dillan Marie M.D. 07/18/2017 6:31 AM Dictated Date/Time: 07/18/2017 6:28 AM
[2017-07-18] MEDS: INSULIN ASPART 100 UNITS/ML 3 ML PEN SC SCH ×2 (08:37→12:54)
[2017-07-18] MEDS ORDERED: ASPIRIN 81 MG ECTAB PO SCH (09:00)
[2017-07-18] MEDS ORDERED: ROSUVASTATIN CALCIUM 10 MG TAB PO SCH (09:00)
[2017-07-18] MEDS: LISINOPRIL 40 MG TAB PO SCH ×2 (09:23→11:38)
[2017-07-18] MEDS: DOXYCYCLINE HYCLATE 100 MG CAP PO SCH (09:23)
--- NOTE | 2017-07-18 09:49 | Pharmacy Progress Note ---
Pharmacy Abx Dose Short Note Date of Service Jul 18, 2017. Assessment & Plan Assessment 57 year old male receiving Vancomycin, acyclovir, ampicillin and rocephin for treatment of possible meningitis. Day # 2 of antimicrobial therapy. Item Value Date Time Random Vancomycin Level 10.7 mcg/ml 07/18/17 0527 57 year old male with a PMH of DM II, HTN and HLD who presents after a 45 minute period of memory loss and confusion earlier this morning. Possibly due to viral or bacterial meningitis vs. TIA/CVA. Patient had been ill for 10 days and had received doxycycline 100mg po bid as an outpatient. Patient also receiving acyclovir 750mg IV q8 hrs (11mg/kg/dose IBW), Ceftriaxone 2 grams IV q 24 hrs and Ampicillin 2grams IV q4hrs (12 gram per day per ISDA guidelines for meningitis) along with the vancomycin. Random vanco level of 10.7 is significantly prior to steadystate and is therefore subtherapeutic. Based on this information, the patient is expected to hit goal trough range of 15-20mcg/mL at steady state. Plan Vancomycin * Continue vanco 1.25gm IV q 12 hours. * Trough level ordered for 07/19 @ 1730. Pharmacy will continue to follow and will adjust dose/frequency as necessary. Thank you.
[2017-07-18] MEDS ORDERED: CEFTRIAXONE SOD INJ 2 GM in DEXTROSE 5% ADD-VANTAGE 50ML 50 ML IV SCH (10:00)
--- NOTE | 2017-07-18 11:21 | INFECT. DISEASE CONSULTATION ---
DATE OF CONSULTATION: 07/18/2017 REQUESTING PHYSICIAN: Patrice Carr DO. HISTORY OF PRESENT ILLNESS: This is a 57-year-old gentleman who was admitted after he had an episode of amnesia yesterday which lasted approximately 30-45 minutes. His was at the bedside and does help provide history. He does not have any recollection of the event nor does he remember coming to the Emergency Room; however, he was awake, alert and oriented x3 by the time he arrived. He was doing work at the house with his son and was appropriate, but then had amnesia of the event. He has had no further episodes of amnesia since admission to the hospital. He denies any recent fevers or chills. He was having some headache and upper respiratory symptoms. He recently was seen by his family physician and he did have a negative screen for Lyme however, he was given a course of doxycycline empirically. He does have multiple family members who have been sick with upper respiratory infection, most of which are young children in the family. As part of his workup in the Emergency Room did include a lumbar puncture, results of this revealed only 11 white blood cells. His glucose and protein were elevated. He did have 100%, lymphocyte predominance. His white blood cell count was only 5.7. A urinalysis and urine drug screen were negative. He has been afebrile since admission to the hospital. He has minimal headache on my exam, but states overall he is feeling better. His RPR was negative. A Lyme PCR, HSV PCR and Varicella zoster were negative. The Gram stain from his cerebrospinal fluid shows no white blood cells or no organisms. He did undergo significant head imaging including an MRI and MRA which were negative. He did have carotid ultrasound which showed plaque but no evidence of stenosis. He is also being followed by neurology for the possibility of global amnesia. On my examination, he denies any neck stiffness or nuchal rigidity. He denies any cough, shortness of breath, nausea, vomiting, diarrhea or abdominal pain. He denies any chest pain. He is tolerating antibiotics well. He states that he does have a trip scheduled for [place] tomorrow and his will be leaving at 7 in the morning. He is asking to be discharged so he can go on his vacation. He was also placed empirically on acyclovir and appears to be tolerating this well. PAST MEDICAL HISTORY: Significant for type 2 diabetes, hyperlipidemia and hypertension. PAST SURGICAL HISTORY: Unremarkable. FAMILY HISTORY: Noncontributory. SOCIAL HISTORY: Negative for tobacco use or drug use. He is . He lives with his family. He drinks occasionally. ALLERGIES: He has no known drug allergies. CURRENT MEDICATIONS: Include Rocephin, aspirin, lisinopril, Crestor, vancomycin, doxycycline, ampicillin, acyclovir, insulin, Lovenox, Tylenol, Zofran. PHYSICAL EXAMINATION: VITAL SIGNS: He is afebrile, pulse 71, respiratory rate is 20, blood pressure 111/69 and oxygen saturation is 98 to 100% on room air. GENERAL: He is awake, alert and oriented x3. He is in no acute distress. HEENT: Mucous membranes are moist. Extraocular muscles are intact. HEART: Regular. LUNGS: Clear bilaterally. ABDOMEN: Soft, nontender, nondistended. EXTREMITIES: There is no lower extremity edema. SKIN: Without rash. NECK: There is no nuchal rigidity. There is no cervical lymphadenopathy. ASSESSMENT AND PLAN: Abnormal lumbar puncture with 11 white blood cells. Certainly this could be a viral meningitis. It is unlikely to be Lyme disease as he recently had negative Lyme testing. If he is to be discharged, I would recommend discharging him on oral Valtrex to complete for 7 days for the possibility of herpes encephalitis; however, this is less likely with a negative MRI; however, his lumbar puncture results are not back. His culture so far is pending, but Gram stain is negative and bacterial causes are less likely even in the event of recent doxycycline. He does not have any recollection of a tick bite. As he has completed a course of doxycycline, I would not recommend any additional doxycycline at this time. He does not have any lab abnormalities to suggest ehrlichiosis or anaplasmosis at this time. He will continue with neurologic followup. Thank you for this consultation. GISELA
--- NOTE | 2017-07-18 11:38 | Progress Note ---
Subjective Date of Service: Jul 18, 2017. Subjective Pt evaluation today including: conversation w/ patient, physical exam, lab review, review of studies, review of inpatient medication list Saw/examined the patient in room 285 He is doing well today, no symptoms currently States he needs to go home today due to a flight to [place] in the morning Problem List Medical Problems: (1) Headache Status: Acute (2) Memory deficit Status: Acute Review of Systems Constitutional: No fever, No chills Respiratory: No shortness of breath Cardiac: No chest pain Abdomen: No pain, No nausea, No vomiting, No diarrhea Neurologic: No memory loss, No paralysis, No weakness, No numbness/tingling, No vertigo, No balance problems Heme: No abnormal bleeding/bruising Medications Current Inpatient Medications Medications (Trade) Dose Ordered Sig/Jennifer Route Start Time Stop Time Status Last Admin Dose Admin Acetaminophen (Tylenol Tab) 650 mg Q4H PRN PO 07/17/17 11:15 08/16/17 11:14 07/17/17 15:30 650 MG Ondansetron HCl (Zofran Inj) 4 mg Q6H PRN IV 07/17/17 11:15 08/16/17 11:14 Insulin Aspart (novoLOG ASPART) SLIDING SCALE If C... ACHS SC 07/17/17 16:00 08/16/17 15:59 07/18/17 08:37 2 UNITS Glucose (Glucose 40% Gel) 15-30 GRAMS 15 GRAMS... UD PRN PO 07/17/17 11:15 08/16/17 11:14 Glucose (Glucose Chew Tab) 4-8 Tablets 4 Tabl... UD PRN PO 07/17/17 11:15 08/16/17 11:14 Dextrose (Dextrose 50% 50ML Syringe) 25-50ML OF 50% DW IV FOR... UD PRN IV 07/17/17 11:15 08/16/17 11:14 Glucagon (Glucagon Inj) 1 mg UD PRN SQ 07/17/17 11:15 08/16/17 11:14 Enoxaparin Sodium (Lovenox Inj) 40 mg Q24H SC 07/17/17 14:00 08/16/17 13:59 Aspirin (Ecotrin Tab) 81 mg DAILY PO 07/18/17 09:00 08/17/17 08:59 10/25/17 09:24 81 MG Lisinopril (Zestril Tab) 40 mg DAILY PO 07/18/17 09:00 08/17/17 08:59 Rosuvastatin Calcium (Crestor Tab) 10 mg DAILY PO 07/18/17 09:00 08/17/17 08:59 07/18/17 09:24 10 MG Doxycycline Hyclate (Vibramycin Cap) 100 mg BID PO 07/17/17 21:00 07/27/17 20:59 07/18/17 09:23 100 MG Miscellaneous (Iv Fluids Completed) 1 ea PRN PRN N/A 07/17/17 12:15 07/17/18 12:14 07/17/17 21:21 1 EA Gadobutrol (Gadavist) 8.5 mmol UD PRN IV 07/17/17 14:15 07/21/17 14:14 Vancomycin HCl 1250 mg/Sodium Chloride 275 ml @ 125 mls/hr Q12H IV 07/18/17 06:00 07/27/17 05:59 07/18/17 06:34 125 MLS/HR Ampicillin Sodium 2000 mg/Sodium Chloride 100 ml @ 200 mls/hr Q4H IV 07/17/17 18:00 07/27/17 17:59 07/18/17 11:13 200 MLS/HR Acyclovir Sodium 750 mg/Dextrose 265 ml @ 265 mls/hr Q8H IV 07/17/17 17:00 07/27/17 16:59 07/18/17 09:25 265 MLS/HR Vancomycin HCl (Consult) 1 ea UD PRN N/A 07/17/17 16:30 08/16/17 16:29 Ceftriaxone Sodium 2 gm/ Dextrose 50 ml @ 100 mls/hr Q12H IV 07/18/17 10:00 07/27/17 15:59 Objective Vital Signs Date Time Temp Pulse Resp B/P (MAP) Pulse Ox O2 Delivery O2 Flow Rate FiO2 07/18/17 09:30 71 111/69 (83) 07/18/17 08:00 98 Room Air 07/18/17 07:47 36.7 68 20 126/80 (95) 98 Room Air 07/18/17 04:00 Room Air 07/18/17 04:00 36.6 65 16 116/74 (88) 99 Room Air 07/18/17 00:01 Room Air 07/17/17 23:43 36.6 64 16 131/78 (95) 97 Room Air 07/17/17 20:14 100 Room Air 07/17/17 20:10 36.6 64 20 125/85 (98) 99 Room Air 07/17/17 16:00 100 Room Air 07/17/17 15:09 36.6 77 18 135/90 (105) 97 Room Air 07/17/17 12:02 36.9 73 18 144/93 (110) 95 Room Air 07/17/17 12:00 Room Air Physical Exam General Appearance: no apparent distress Respiratory/Chest: lungs clear, normal breath sounds, no respiratory distress, no accessory muscle use Cardiovascular: regular rate, rhythm, no edema, no murmur Extremities: normal inspection, no pedal edema Neurologic/Psychiatric: 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, no motor/sensory deficits, alert, normal mood/affect, oriented x 3 Laboratory Results Last 24 Hours Test 07/17/17 11:59 07/17/17 16:27 07/17/17 20:40 07/18/17 05:27 Bedside Glucose 152 mg/dl 123 mg/dl 93 mg/dl White Blood Count 5.72 K/uL Red Blood Count 4.73 M/uL Hemoglobin 13.5 g/dL Hematocrit 39.1 % Mean Corpuscular Volume 82.7 fL Mean Corpuscular Hemoglobin 28.5 pg Mean Corpuscular Hemoglobin Concent 34.5 g/dl RDW Standard Deviation 38.9 fL RDW Coefficient of Variation 12.9 % Platelet Count 117 K/uL Mean Platelet Volume 11.4 fL Prothrombin Time 11.2 SECONDS Prothromb Time International Ratio 1.0 Sodium Level 139 mmol/L Potassium Level 4.1 mmol/L Chloride Level 106 mmol/L Carbon Dioxide Level 29 mmol/L Anion Gap 5.0 mmol/L Blood Urea Nitrogen 16 mg/dl Creatinine 0.95 mg/dl Est Creatinine Clear Calc Drug Dose 90.5 ml/min Estimated GFR () 101.9 Estimated GFR (Non- 87.9 BUN/Creatinine Ratio 16.4 Random Glucose 136 mg/dl Calcium Level 8.6 mg/dl Random Vancomycin Level 10.7 mcg/ml Test 07/18/17 07:50 Bedside Glucose 133 mg/dl Assessment and Plan This is a 57yo M with a PMH of DM II, HTN and HLD who presents after a 45 minute period of memory loss and confusion earlier this morning. Transient Global Amnesia 07/[address] CT, MRA, MRV are negative echo and EEG pending for now, we will continue broad spectrum abx. for possible meningitis; ID consult pending 07/17 -Possibly due to viral meningitis vs. TIA/CVA -Neuro consulted. Recommended: -Lumbar puncture -MRI combo -LP CSF results: Elevated wbc of 11 Elevated glucose of 76 Elevated protein of 60 -Awaiting CSF culture, Lyme serology, RPR, HSV, VZV -Gram stain negative for wbc, organisms -MRI pending DM II: -Non-compliant with home regimen of Metformin 1,000mg BID -Takes 500-1,000mg total each day -Hgb a1c of 7.5 in 06/2017 -Hold home agents -SSI while in-patient -BSG checks AC HS HTN: -Continue home dose lisinopril -Monitor and add additional therapy if indicated HLD: -Continue statin DVT Ppx: Lovenox Code status: FULL PCP: Mita Dispo: Plan to return home once medically stable Patient seen in collaboration with Dr. Carr. Please see addendum.
--- NOTE | 2017-07-18 11:38 | Progress Note ---
Progress Note Date of Service Jul 18, 2017. Progress Note ID Consult Dictated #[id number] A/P: 1. Meningitis -Mild elevation of wbc, doubt bacterial, if culture negative would stop vanco and amp -Remains on doxy (started as oupt for ? lyme although pt reports negative testing and no tick bite) -HSV pcr pending, less likely with negative MRI, but if to be d/c prior to final results would transition to po valtrex 1g tid x 7 days, continue acyclovir for now -Unclear if episode of amnesia is infectious related, ? [place] virus but no known tick bite and symptoms resolved, no specific treatment -Would continue doxy for now, pending lyme pcr. reported negative serology as outpatient last week.
--- NOTE | 2017-07-18 13:33 | ELECTROENCEPHALOGRAPH REPORT ---
REQUESTING PHYSICIAN: Carol Patterson MD CLINICAL DIAGNOSIS: Possible encephalitis. ELECTROENCEPHALOGRAM DIAGNOSIS: Essentially normal during wakefulness. DESCRIPTION OF TRACING: This EEG was done as a bedside recording and is of good technical quality. Unfortunately, the video analysis of patient movement and behavior was not transposed on to the computerized record and was not visible for viewing. Photic stimulation was performed. Hyperventilation was not. Drowsiness and light sleep were not recorded. Under these conditions, there is evidence for normal appearing background rhythm in the alpha range of up to 10 volts to 11 Hz of maximum frequency and 30 microvolts of maximum amplitude. This is maximum posterior head regions bilaterally symmetrical. Polymorphic mid to upper frequency of modest voltage theta activity is seen over all head regions without clear focal or regional predominance. Anterior head region maximum bilaterally symmetrical low voltage fast activity in the beta range is present. At no time during the waking tracing is there evidence for potentially epileptogenic activity in the form of polyspike or spike wave bursts, focal sharp waves or focal spikes. Photic stimulation provoked some modest driving response without a photomyogenic or photoparoxysmal component. INTERPRETATION: This electroencephalogram is essentially normal during wakefulness without evidence for focal or generalized encephalopathy and without evidence for potentially epileptogenic activity.
[2017-07-18] MEDS: ENOXAPARIN 40 MG/0.4 ML SYR SC SCH (14:30)
--- NOTE | 2017-07-18 14:57 | Neurology Progress Notes ---
Neurology Progress Note Date of Service Jul 18, 2017. Carolina Langston is a 57 year old male PMH - DM II, HTN and HLD who presents after a 45 minute period of memory loss and confusion earlier this morning. He woke up around 5am in a normal state of health. He noticed their water was not working so he called his son and son in law to help pull the submersible pump. He knows his father and the son and son in law was there but he didn't remember them leaving His states he called her 5 times asking where he was and where she was. He knew he wasn't normal but didn't know what the problem was. He had no slurred speech, facial droop, one sided weakness. He didn't remember anything until they arrived at the hospital. His son stated he kept repeating the same thing about where is his . He didn't remember being taken to the hospital but he does remember sitting in the ED and knew his son and where he was at that point. He does not smoke, minimal EtOH use and modest caffeine use. denies CP, SOB, abdominal pain, weakness, numbness tingling, N,V. He did have a headache but that is his normal TMJ pain, nothing new. No history of stroke or seizure. no falls, +nocturnal night sweats x 3 nights Today he states he would like to go home and currently waiting on the results of the TTE and EEG done this am. denies CP, SOB, abdominal pain, weakness, numbness tingling, increased headache, vision changes, fever chills night sweats. He has been up walking the halls with no difficulty Objective Date Time Temp Pulse Resp B/P (MAP) Pulse Ox O2 Delivery O2 Flow Rate FiO2 07/18/17 12:00 Room Air 07/18/17 11:28 36.8 66 18 105/67 (80) 95 07/18/17 09:30 71 111/69 (83) 07/18/17 08:00 98 Room Air 07/18/17 07:47 36.7 68 20 126/80 (95) 98 Room Air 07/18/17 04:00 Room Air 07/18/17 04:00 36.6 65 16 116/74 (88) 99 Room Air 07/18/17 00:01 Room Air 07/17/17 23:43 36.6 64 16 131/78 (95) 97 Room Air 07/17/17 20:14 100 Room Air 07/17/17 20:10 36.6 64 20 125/85 (98) 99 Room Air 07/17/17 16:00 100 Room Air 07/17/17 15:09 36.6 77 18 135/90 (105) 97 Room Air Last 24 Hours Test 07/17/17 16:27 07/17/17 20:40 07/18/17 05:27 07/18/17 07:50 Bedside Glucose 123 mg/dl 93 mg/dl 133 mg/dl White Blood Count 5.72 K/uL Red Blood Count 4.73 M/uL Hemoglobin 13.5 g/dL Hematocrit 39.1 % Mean Corpuscular Volume 82.7 fL Mean Corpuscular Hemoglobin 28.5 pg Mean Corpuscular Hemoglobin Concent 34.5 g/dl RDW Standard Deviation 38.9 fL RDW Coefficient of Variation 12.9 % Platelet Count 117 K/uL Mean Platelet Volume 11.4 fL Prothrombin Time 11.2 SECONDS Prothromb Time International Ratio 1.0 Sodium Level 139 mmol/L Potassium Level 4.1 mmol/L Chloride Level 106 mmol/L Carbon Dioxide Level 29 mmol/L Anion Gap 5.0 mmol/L Blood Urea Nitrogen 16 mg/dl Creatinine 0.95 mg/dl Est Creatinine Clear Calc Drug Dose 90.5 ml/min Estimated GFR () 101.9 Estimated GFR (Non- 87.9 BUN/Creatinine Ratio 16.4 Random Glucose 136 mg/dl Calcium Level 8.6 mg/dl Random Vancomycin Level 10.7 mcg/ml Test 07/18/17 11:36 Bedside Glucose 197 mg/dl Imaging: EEG- This electroencephalogram is essentially normal during wakefulness without evidence for focal or generalized encephalopathy and without evidence for potentially epileptogenic activity. Carotid doppler- No hemodynamically significant stenosis seen within the carotid arteries. Significant plaque formation bilaterally MRI brain combo- No acute intracranial abnormality. No acute ischemia or abnormal enhancement. Maxillary and ethmoid sinus disease as above. MRV No evidence for dural venous sinus thrombosis MRA-No significant stenosis, occlusion, or aneurysm within the [place]. TTE- he left ventricular wall motion is normal. There is mild concentric left ventricular hypertrophy. Left ventricular systolic function is normal. The LV Ejection Fraction = 55-60%. Grade I diastolic dysfunction, (abnormal relaxation pattern). The interatrial septum is intact with no evidence for an atrial septal defect. Exam: Physical Exam: Constitutional: appearance nourished, healthy and normal Ears, Nose, Mouth and Throat: mucous membranes moist, no injection and skin normal, eyes normal Cardiovascular: normal S-1 and S-2 and regular rate and rhythm Respiratory: clear to auscultation (CTA) and no rales, rhonchi or wheeze Musculoskeletal: no peripheral edema and good distal pulses Skin: no stigmata of neurocutaneous disease noted and normal and intact Eyes: extraocular muscles intact (EOMI) and pupils equal, round and reactive to light (PERRL) NEUROLOGIC EXAMINATION: Mental status: Alert and interactive Oriented to full date and location Oriented to person Speech fluent with no evidence of aphasia Cranial Nerves smile eye brow raise symmetry Gait/Stance: Posture normal. Gait normal: with steady with steps, base, and tandem gait. 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 ACHS SC 07/17/17 16:00 08/16/17 15:59 07/18/17 12:54 5 UNITS Glucose (Glucose 40% Gel) 15-30 GRAMS 15 GRAMS... UD PRN PO 07/17/17 11:15 08/16/17 11:14 Glucose (Glucose Chew Tab) 4-8 Tablets 4 Tabl... UD PRN PO 07/17/17 11:15 08/16/17 11:14 Dextrose (Dextrose 50% 50ML Syringe) 25-50ML OF 50% DW IV FOR... UD PRN IV 07/17/17 11:15 08/16/17 11:14 Glucagon (Glucagon Inj) 1 mg UD PRN SQ 07/17/17 11:15 08/16/17 11:14 Enoxaparin Sodium (Lovenox Inj) 40 mg Q24H SC 07/17/17 14:00 08/16/17 13:59 Aspirin (Ecotrin Tab) 81 mg DAILY PO 07/18/17 09:00 08/17/17 08:59 07/18/17 09:24 81 MG Lisinopril (Zestril Tab) 40 mg DAILY PO 07/18/17 09:00 08/17/17 08:59 Rosuvastatin Calcium (Crestor Tab) 10 mg DAILY PO 07/18/17 09:00 08/17/17 08:59 07/18/17 09:24 10 MG Doxycycline Hyclate (Vibramycin Cap) 100 mg BID PO 07/17/17 21:00 07/27/17 20:59 07/18/17 09:23 100 MG Miscellaneous (Iv Fluids Completed) 1 ea PRN PRN N/A 07/17/17 12:15 07/17/18 12:14 07/17/17 21:21 1 EA Gadobutrol (Gadavist) 8.5 mmol UD PRN IV 07/17/17 14:15 07/21/17 14:14 Vancomycin HCl 1250 mg/Sodium Chloride 275 ml @ 125 mls/hr Q12H IV 07/18/17 06:00 07/27/17 05:59 07/18/17 06:34 125 MLS/HR Ampicillin Sodium 2000 mg/Sodium Chloride 100 ml @ 200 mls/hr Q4H IV 07/17/17 18:00 07/27/17 17:59 07/18/17 14:37 200 MLS/HR Acyclovir Sodium 750 mg/Dextrose 265 ml @ 265 mls/hr Q8H IV 07/17/17 17:00 07/27/17 16:59 07/18/17 09:25 265 MLS/HR Vancomycin HCl (Consult) 1 ea UD PRN N/A 07/17/17 16:30 08/16/17 16:29 Ceftriaxone Sodium 2 gm/ Dextrose 50 ml @ 100 mls/hr Q12H IV 07/18/17 10:00 07/27/17 15:59 07/18/17 11:53 100 MLS/HR Impression 57 year old male lapse of memory x 45 minutes Plan 1. LP done in ED. 2. labs pending from CSF- WBC 11 3. MRI brain no evidence of stroke or lesion 4. carotid doppler with some plaque formation will need follow up with PCP 5. continue HTN, DL, DM control 6. EEG no seizure activity 7. MRA/MRV no vascular issues 8. gram stain negative for WBC or bacteria 9. TTE no ASD I have seen and discussed above patient with Dr Carol Patterson, neurology PT seen. Viral prodrome with mild headache then confusional episode with amnesia followed by severe headache.Pt reports today that a family member was with him at all times during this period except when he changed. At that time his father was near. No convulsive seizure was noted. Pt repeatedly asked the same question. CSF most consistent with a viral/aseptic meningitis. EEG no sz, MRI,A, V unremarkable. There is and entity called HANDL. Headache and neurologic deficit and CSF pleocytosis. Pt typically are younger, have higher CSF WBC and have focal neurologic deficits such as aphasia and hemiparesis, and can have abnl MRI brain. This is more likely a viral meningitis with confusional episode. The accompanying sx were most like transient global amnesia. The pt was not witnessed to have a unresponsive episode. The sx were mostly difficulty forming antegrade memory without focal neurologic sx, of sudden onset and resolved after a period with pt being amnestic for event. Such a protracted anterograde amnesia would be unusual for a partial complex sz. ID has oked dc from an meningitis perspective with anti-virals. I would recommend dc on asa and pt should see myself or Carol Rooney within the week. He should not drive until re-evaluated. Pt has plans to fly to [place] tomorrow. I would not recommend that given this episode 36 hours ago as if it recurred in flight could put pt at risk. The pt will ultimately decide. MARCELINO Patterson MD
--- NOTE | 2017-07-18 16:36 | ECHOCARDIOGRAM REPORT ---
*NOTICE TO RECEIVING DEMOCRAT AGENCY This information is strictly Confidential and protected under [place] law. [place] law prohibits you from making any further disclosure of this information unless further disclosure is expressly permitted by the written consent of the person to whom it pertains or is authorized by law. A general authorization for the release of medical or other information is not sufficient for this purpose. Hospital accepts no responsibility if the information is made available to any other person, INCLUDING THE PATIENT. Interpretation Summary * Name: TOM STRONG Study Date: 07/18/2017 08:18 AM BP: 116/74 mmHg * Patient Location: [facility]\S\N285\S\2 HR: 72 * : 1960 (M/d/yyyy) Gender: Male Height: 68 in * Age: 57 yrs Ethnicity: [place] Weight: 189 lb * Ordering Physician: Carol Patterson * Performed By: Fay Ellis RDCS * * Reason For Study: TIA * BSA: 2.0 m2 * -- Conclusions -- * The left ventricular wall motion is normal. * There is mild concentric left ventricular hypertrophy. * Left ventricular systolic function is normal. * The LV Ejection Fraction = 55-60%. * Grade I diastolic dysfunction, (abnormal relaxation pattern). * The interatrial septum is intact with no evidence for an atrial septal defect. Procedure Details * A complete two-dimensional transthoracic echocardiogram was performed (2D, M-mode, Doppler and color flow Doppler). * A saline contrast injection was performed to assess for cardiac shunting. * The injection was performed through an intravenous line in the left arm. * The attending nurse who injected the saline contrast was RADHA ESCALANTE RN. * A total of 20 cc of agitated saline was given. Left Ventricle * The left ventricle is normal in size. * There is mild concentric left ventricular hypertrophy. * Left ventricular systolic function is normal. * Ejection Fraction = 55-60%. * The left ventricular wall motion is normal. Right Ventricle * The right ventricle is normal size. * The right ventricular systolic function is normal as assessed by tricuspid annular plane systolic excursion (TAPSE) (normal >1.5 cm). Atria * The left atrial size is normal. * Right atrial size is normal. * The interatrial septum is intact with no evidence for an atrial septal defect. Mitral Valve * The mitral valve is normal. * There is no mitral valve stenosis. * Significant mitral regurgitation is absent. Tricuspid Valve * The tricuspid valve is normal. * There is no tricuspid stenosis. * Significant tricuspid regurgitation is absent. Aortic Valve * The aortic valve is trileaflet. * Aortic stenosis is absent. * There is no significant aortic regurgitation. Pulmonic Valve * The pulmonary valve is not well seen, but the Doppler examination is normal without significant regurgitation or stenosis. Great Vessels * The aortic root and proximal ascending aorta are normal sized. Pericardium/Pleural * There is no pericardial effusion. Great Vessels * Normal inferior vena cava diameter and respiratory variation suggests normal central venous pressure. Left Ventricular Diastolic Function * Grade I diastolic dysfunction, (abnormal relaxation pattern). MMode 2D Measurements and Calculations IVSd 1.1 cm IVSs 1.4 cm LVIDd 4.3 cm LVIDs 2.9 cm LVPWd 0.87 cm LVPWs 1.3 cm IVS/LVPW 1.3 FS 31.9 % EDV(Teich) 82.2 ml ESV(Teich) 32.6 ml EF(Teich) 60.3 % EDV(cubed) 78.4 ml ESV(cubed) 24.8 ml EF(cubed) 68.4 % % IVS thick 21.9 % % LVPW thick 49.3 % LV mass(C)d 142.6 grams LV mass(C)dI 71.4 grams/m\S\2 LV mass(C)s 126.4 grams LV mass(C)sI 63.4 grams/m\S\2 CO(Teich) 3.4 l/min CI(Teich) 1.7 l/min/m\S\2 SV(Teich) 49.5 ml SI(Teich) 24.8 ml/m\S\2 CO(cubed) 3.6 l/min CI(cubed) 1.8 l/min/m\S\2 SV(cubed) 53.6 ml SI(cubed) 26.9 ml/m\S\2 ACS 2.0 cm LA dimension 4.0 cm asc Aorta Diam 4.0 cm LVOT diam 2.1 cm LVOT area 3.5 cm\S\2 LVAd ap4 31.6 cm\S\2 LVLd ap4 8.7 cm EDV(MOD-sp4) 92.8 ml LVAs ap4 18.8 cm\S\2 LVLs ap4 7.0 cm ESV(MOD-sp4) 42.3 ml EF(MOD-sp4) 54.4 % LVAd ap2 31.6 cm\S\2 LVLd ap2 8.3 cm EDV(MOD-sp2) 100.0 ml LVAs ap2 18.5 cm\S\2 LVLs ap2 7.0 cm ESV(MOD-sp2) 41.1 ml EF(MOD-sp2) 58.9 % CO(MOD-sp4) 3.4 l/min CI(MOD-sp4) 1.7 l/min/m\S\2 SV(MOD-sp4) 50.5 ml SI(MOD-sp4) 25.3 ml/m\S\2 CO(MOD-sp2) 4.0 l/min CI(MOD-sp2) 2.0 l/min/m\S\2 SV(MOD-sp2) 58.9 ml SI(MOD-sp2) 29.5 ml/m\S\2 Doppler Measurements and Calculations MV E max lake 90.2 cm/sec MV A max lake 86.3 cm/sec MV E/A 1.0 MV dec time 0.20 sec Ao V2 max 156.4 cm/sec Ao max PG 9.8 mmHg Ao max PG (full) 4.5 mmHg ZAIN(V,A) 2.5 cm\S\2 ZAIN(V,D) 2.5 cm\S\2 LV V1 max PG 5.2 mmHg LV V1 max 114.5 cm/sec MR max lake 271.9 cm/sec MR max PG 29.6 mmHg PA V2 max 85.4 cm/sec PA max PG 2.9 mmHg
[2017-07-18] MEDS ORDERED: VALA1TAB2 PO (17:18)
--- NOTE | 2017-07-18 17:20 | Discharge Instructions ---
Discharge Instructions Date of Service Jul 18, 2017. Admission Reason for Admission: Headache,Memory Deficit Discharge Discharge Diagnosis / Problem: Transient Global Amnesia, Viral Meningitis Discharge Goals Goal(s): Decrease discomfort, Improve function, Diagnostic testing, Therapeutic intervention Activity Recommendations Activity Limitations: resume your previous activity . Instructions / Follow-Up Instructions / Follow-Up Please follow-up with Dr. Fan on July 24 at 2:45PM * You will be discharged on Valtrex (antiviral medication) - take this three times daily * Please follow-up with neurology in 1-2 weeks in the office Current Hospital Diet Patient's current hospital diet: Diabetes Type 2 Diet, Low Sodium Diet (2gm Na) Discharge Diet Recommended Diet: Low Sodium Diet (2gm Na), Diabetes Type 2 Diet Pending Studies Studies pending at discharge: no Medical Emergencies . Who to Call and When: Medical Emergencies: If at any time you feel your situation is an emergency, please call 911 immediately. . Non-Emergent Contact Non-Emergency issues call your: Primary Care Provider . . "Provider Documentation" section prepared by Patrice Carr. . VTE Core Measure Inpt VTE Proph given/why not?: Enoxaparin (Lovenox)SQ
--- NOTE | 2017-07-18 17:23 | Discharge Summary ---
Discharge Summary Date of Service Jul 18, 2017. Discharge Summary Admission Date: Jul 18, 2017 at 08:56 Discharge Date: Jul 18, 2017 Discharge Disposition: Home Principal Diagnosis: Transient Global Amnesia Aseptic Meningitis Medication Reconciliation New Medications: Valacyclovir Hcl (Valtrex) 1 Gm Tab 1000 MG PO TID for 7 Days, #21 TAB Continued Medications: Aspirin (Aspirin EC Low Dose) 81 Mg Ectab 81 MG PO DAILY Lisinopril (Zestril) 40 Mg Tab 40 MG PO DAILY, TAB Metformin Hcl (Glucophage) 1,000 Mg Tab 1 TAB PO BID for 30 Days, #60 TAB 5 Refills Rosuvastatin Calcium (Crestor) 10 Mg Tab 10 MG PO DAILY, TAB Discontinued Medications: Doxycycline (Monohydrate) (Doxycycline) 100 Mg Cap 100 MG PO BID Admission Information HPI (per Admitting provider): This is a 57yo M with a PMH of DM II, HTN and HLD who presents after a 45 minute period of memory loss and confusion earlier this morning. Patient woke up around 5am in a normal state of health. Per , patient had sweat through pajamas during the night, but states that has occurred multiple times in the past few months. The patient then noticed his water was not working so he called his son to help adjust the water pump. Afterwards, the patient's son left and he worked in the garage. From 6:40-7:10am, patient called his 5 times asking where he was and where she was. Told her that he didn't feel normal. Did not remember the proceeding events of the morning or that his son had just left. called son to bring the patient into the ER for further evaluation. Patient does not remember the ride over to the hospital or the time spent in the waiting room. Memory impairment resolved once patient got to ER room but is still unclear about previous events. Currently, patient endorses feeling "flushed" in the face and has a 6/10 throbbing headache above bilateral ears. Denies fever, chills, lightheadedness, visual changes, neck stiffness, difficulty with speech, palpitations, CP, SOB, abd pain, nausea/vomiting, difficulty with ambulation or any focal neurological deficits. Has chronic headaches but pain is more severe today. Denies any history of stroke, heart disease. Endorses an intentional 10# weight loss in the last few months. Last week, patient was evaluated by PCP for facial pain, headache, chills. Was started on doxycycline prophylactically for Lyme disease. Titer came back negative but patient was encouraged to complete course of antibiotics due to slight leukocytosis of 11.2. Physical Exam (per Admitting): General Appearance: WD/WN, no apparent distress Head: normocephalic, atraumatic Eyes: normal inspection, PERRL, EOMI, sclerae normal (Conjunctiva normal ) ENT: normal ENT inspection, hearing grossly normal, pharynx normal (Moist mucous membranes ), + pertinent finding (Neck with full ROM) Neck: supple, no adenopathy, thyroid normal, trachea midline Respiratory/Chest: chest non-tender, lungs clear, normal breath sounds, no respiratory distress, no accessory muscle use Cardiovascular: regular rate, rhythm, no edema, no murmur, normal peripheral pulses Abdomen/GI: normal bowel sounds, non tender, soft, no organomegaly Back: normal inspection Extremities/Musculoskelatal: normal inspection, no calf tenderness, normal capillary refill, no pedal edema Neurologic/Psych: qi specialist II-XII nml as tested, no motor/sensory deficits ( Normal gait. Full ROM and 5/5 NUBIA throughout. No abnormal cerebellar tests. ), alert, normal mood/affect, oriented x 3 Skin: normal color, warm/dry, no rash Hospital Course This is a 57yo M with a PMH of DM II, HTN and HLD who presents after a 45 minute period of memory loss and confusion earlier this morning. Transient Global Amnesia 07/[address] CT, MRA, MRV are negative echo and EEG pending for now, we will continue broad spectrum abx. for possible meningitis; ID consult pending 07/17 -Possibly due to viral meningitis vs. TIA/CVA -Neuro consulted. Recommended: -Lumbar puncture -MRI combo -LP CSF results: Elevated wbc of 11 Elevated glucose of 76 Elevated protein of 60 -Awaiting CSF culture, Lyme serology, RPR, HSV, VZV -Gram stain negative for wbc, organisms -MRI pending DM II: -Non-compliant with home regimen of Metformin 1,000mg BID -Takes 500-1,000mg total each day -Hgb a1c of 7.5 in 06/2017 -Hold home agents -SSI while in-patient -BSG checks AC HS HTN: -Continue home dose lisinopril -Monitor and add additional therapy if indicated HLD: -Continue statin DVT Ppx: Lovenox Code status: FULL PCP: Mita Dispo: Plan to return home once medically stable Patient seen in collaboration with Dr. Carr. Please see addendum. Total time spent on discharge = 50 minutes This includes examination of the patient, discharge planning, medication reconciliation, and communication with other providers. Discharge Instructions Please follow-up with Dr. Fan on July 24 at 2:45PM * You will be discharged on Valtrex (antiviral medication) - take this three times daily * Please follow-up with neurology in 1-2 weeks in the office
[2017-07-19] MEDS ORDERED: LISI40TA PO (08:10)
[2017-07-19] MEDS ORDERED: CRS/10 PO (08:10)
[2017-07-19] MEDS ORDERED: ASPEC81 PO (11:19)
[2017-07-19] MEDS ORDERED: METF1000 PO (11:19)
[2017-07-19] MEDS ORDERED: METO-157 PO (12:37)
[2017-07-19] MEDS ORDERED: VANCOMYCIN TROUGH ONE (17:30)
[2017-07-20 08:46] LABS: HSV TYPE 1 DNA Not Detected (Not Detected); HSV TYPE 1&2 DNA SOURCE CSF; HSV TYPE 2 DNA Not Detected (Not Detected); LYME DNA PCR CSF OR SYNOVIAL Not detected (Not Detected); LYME DNA SOURCE CSF; LYME IGG CSF NO BANDS DETECTED; LYME IGM CSF NO BANDS DETECTED; VARICELLA ZOSTER DNA PCR QUAL Not Detected (Not Detected); VZ DNA SOURCE CSF
== END 2017-07-18 18:15 | disposition home or self-care (01) | DRG 99 ==
LOC: C.EDB 07:17 → C.MED 11:01 → ENRESERV 11:12 → OBSVTOIN 07-18 08:56
PROVIDERS: ADMIT Family Medicine; ATTEND Family Medicine
PROC: 009U3ZX Drainage of Spinal Canal, Percutaneous Approach, Diagnostic (ICD-10-PCS; principal; 2017-07-17)
DX: G03.0 Nonpyogenic meningitis (principal); R41.3 Other amnesia; E11.9 Type 2 diabetes mellitus without complications; I10 Essential (primary) hypertension; E78.00 Pure hypercholesterolemia, unspecified; Z79.82 Long term (current) use of aspirin

== ENCOUNTER 2017-07-19 07:30 | Emergency (ER) | payer BC ==
[~2017-07-19] VITALS: Ht 172.7 cm; Wt 87.2 kg
[~2017-07-19 07:30] MED LIST: VALA1TAB2 PO
[2017-07-19 07:37] VITALS: PULSE 74; TEMP 36.7; O2SAT 98; Ht 172.7 cm; Wt 87.2 kg
[2017-07-19] MEDS ORDERED: LISI40TA PO (08:10)
[2017-07-19] MEDS ORDERED: CRS/10 PO (08:10)
[2017-07-19] MEDS ORDERED: SODIUM CHLORIDE 0.9% 1000ML 1,000 ML IV STA ×3 (08:31)
[2017-07-19] MEDS ORDERED: KETOROLAC TROMETHAMINE 30 MG/ML VIAL IV STA (08:31)
[2017-07-19] MEDS ORDERED: METOCLOPRAMIDE HCL INJ 5 MG/ML 2 ML VIAL IV STA (08:31)
[2017-07-19] MEDS ORDERED: DiphenhydrAMINE HCL 50 MG/ML VIAL IV STA (08:31)
--- NOTE | 2017-07-19 08:38 | EMERGENCY ROOM VISIT NOTE ---
History Report prepared by Jesus: Kylie Perez Under the Supervision of: Dr. Yogesh Bustillos M.D. First contact with patient: 07:57 Chief Complaint: DIZZY Stated Complaint: SWEATS,PAIN IN FACE,DIZZY Nursing Triage Summary: PT recently admitted here for possible viral meningitis and transient global amnesia, discharged yesterday. This morning pt woke up diaphoretic, dizzy, left neck/facial pain, & feeling "spaced out". History of Present Illness The patient is a 57 year old male who presents to the Emergency Room with complaints of persistent dizziness that began this morning. He currently rates his discomfort as a 9/10 in severity. The patient states that he was recently evaluated in the hospital for an episode of confusion and memory loss. The patient states that several days ago he had a large work up in the emergency department, noting that he had scans, MRI, and lumbar puncture. The patient's states that the patient was discharged yesterday from the hospital and was told that he most likely had a viral meningitis and transient global amnesia. The patient states that yesterday upon discharge he felt well, but notes that he did have a headache. He states that this morning when he woke he had a different headache. The patient states that his headache today is localized to the left side of his head and face. He states that this morning he woke feeling diaphoretic. The patient states that he could not get out of bed due to his dizziness this morning. He states that he feels spaced out, but denies any room spinning sensation. Source of History: patient, spouse/significant other () Onset: this morning Position: other (global) Symptom Intensity: 9/10 Quality: other (dizziness) Timing: other (persistent) Associated Symptoms: + headache, + diaphoresis Note: Associated symptoms: spaced out Review of Systems See HPI for pertinent positives and negatives. A total of ten systems were reviewed and were otherwise negative. Past Medical & Surgical Medical Problems: (1) Diabetes mellitus, type II (2) HLD (hyperlipidemia) (3) HTN (hypertension) Family History Diabetes mellitus FATHER Hypertension FATHER Social History Smoking Status: Never Smoker Alcohol Use: occasionally Drug Use: none Marital Status: Housing Status: lives with family Occupation Status: employed Current/Historical Medications Scheduled Aspirin (Aspirin EC Low Dose), 81 MG PO DAILY Lisinopril (Zestril), 40 MG PO DAILY Metformin Hcl (Glucophage), 1,000 MG PO BID Metoclopramide (Reglan), 10 MG PO Q6H Rosuvastatin Calcium (Crestor), 10 MG PO DAILY Valacyclovir Hcl (Valtrex), 1,000 MG PO TID Allergies Coded Allergies: No Known Allergies (Verified , 07/19/17) Physical Exam Vital Signs Date Time Temp Pulse Resp B/P (MAP) Pulse Ox O2 Delivery O2 Flow Rate FiO2 07/19/17 13:01 149/96 07/19/17 11:33 122/78 07/19/17 09:53 124/77 07/19/17 07:37 36.7 74 18 170/99 98 Room Air Physical Exam GENERAL: Awake, alert, well-appearing, in no distress HENT: Normocephalic, atraumatic. Dry mucous membranes. EYES: Normal conjunctiva. Sclera non-icteric. NECK: Supple. No nuchal rigidity. FROM. No JVD. RESPIRATORY: Clear to auscultation. CARDIAC: Regular rate, normal rhythm. Extremities warm and well perfused. Pulses equal. ABDOMEN: Soft, non-distended. No tenderness to palpation. No rebound or guarding. No masses. RECTAL: Deferred. MUSCULOSKELETAL: Chest examination reveals no tenderness. The back is symmetrical on inspection without obvious abnormality. There is no CVA tenderness to palpation. No joint edema. LOWER EXTREMITIES: Calves are equal size bilaterally and non-tender. No edema. No discoloration. NEURO: Normal sensorium. No sensory or motor deficits noted. Equivocal Romberg sign, otherwise cerebeallar intact, alternate palms, heel to rebolledo, finger to nose, steady gait SKIN: No rash or jaundice noted. Medical Decision & Procedures ER Provider Diagnostic Interpretation: X-ray: Per my interpretation, radiologist review. CHEST ONE VIEW PORTABLE CLINICAL HISTORY: ABDOMINAL PAIN/GI pain. Nausea. COMPARISON STUDY: 07/17/2007 FINDINGS: Small calcific granuloma right base. Lungs otherwise appear clear. Diaphragms are smooth. No evidence for cardiac enlargement. IMPRESSION: No acute process. No change compared to the prior exam. The above report was generated using voice recognition software. It may contain grammatical, syntax or spelling errors. Electronically signed by: Dillan Marie M.D. 07/19/2017 8:59 AM Dictated Date/Time: 07/19/2017 8:59 AM Laboratory Results 07/19/17 08:45 Red Blood Count 5.06, Mean Corpuscular Volume 82.8, Mean Corpuscular Hemoglobin 28.7, Mean Corpuscular Hemoglobin Concent 34.6, Mean Platelet Volume 11.5, Neutrophils (%) (Auto) 80.4, Lymphocytes (%) (Auto) 13.4, Monocytes (%) (Auto) 4.5, Eosinophils (%) (Auto) 1.1, Basophils (%) (Auto) 0.2, Neutrophils # (Auto) 4.26, Lymphocytes # (Auto) 0.71, Monocytes # (Auto) 0.24, Eosinophils # (Auto) 0.06, Basophils # (Auto) 0.01 07/19/17 08:45 Test 07/19/17 08:45 07/19/17 10:05 White Blood Count 5.30 K/uL (4.8-10.8) Red Blood Count 5.06 M/uL (4.7-6.1) Hemoglobin 14.5 g/dL (14.0-18.0) Hematocrit 41.9 % (42-52) Mean Corpuscular Volume 82.8 fL (80-100) Mean Corpuscular Hemoglobin 28.7 pg (25-34) Mean Corpuscular Hemoglobin Concent 34.6 g/dl (32-36) Platelet Count 115 K/uL (130-400) Mean Platelet Volume 11.5 fL (7.4-10.4) Neutrophils (%) (Auto) 80.4 % Lymphocytes (%) (Auto) 13.4 % Monocytes (%) (Auto) 4.5 % Eosinophils (%) (Auto) 1.1 % Basophils (%) (Auto) 0.2 % Neutrophils # (Auto) 4.26 K/uL (1.4-6.5) Lymphocytes # (Auto) 0.71 K/uL (1.2-3.4) Monocytes # (Auto) 0.24 K/uL (0.11-0.59) Eosinophils # (Auto) 0.06 K/uL (0-0.5) Basophils # (Auto) 0.01 K/uL (0-0.2) RDW Standard Deviation 38.5 fL (36.4-46.3) RDW Coefficient of Variation 12.9 % (11.5-14.5) Immature Granulocyte % (Auto) 0.4 % Immature Granulocyte # (Auto) 0.02 K/uL (0.00-0.02) Anion Gap 6.0 mmol/L (3-11) Est Creatinine Clear Calc Drug Dose 84.8 ml/min Estimated GFR () 93.5 Estimated GFR (Non- 80.6 BUN/Creatinine Ratio 12.0 (10-20) Calcium Level 8.9 mg/dl (8.5-10.1) Total Bilirubin 0.5 mg/dl (0.2-1) Direct Bilirubin 0.1 mg/dl (0-0.2) Aspartate Amino Transf (AST/SGOT) 14 U/L (15-37) Alanine Aminotransferase (ALT/SGPT) 32 U/L (12-78) Alkaline Phosphatase 47 U/L (45-117) Troponin I < 0.015 ng/ml (0-0.045) Total Protein 7.2 gm/dl (6.4-8.2) Albumin 4.1 gm/dl (3.4-5.0) Lipase 87 U/L (73-393) Urine Color YELLOW Urine Appearance CLEAR (CLEAR) Urine pH 5.0 (4.5-7.5) Urine Specific [place] 1.021 (1.000-1.030) Urine Protein NEG (NEG) Urine Glucose (UA) NEG (NEG) Urine Ketones NEG (NEG) Urine Occult Blood NEG (NEG) Urine Nitrite NEG (NEG) Urine Bilirubin NEG (NEG) Urine Urobilinogen NEG (NEG) Urine Leukocyte Esterase NEG (NEG) Laboratory results reviewed by me Medications Administered Medications (Trade) Dose Ordered Sig/Jennifer Route Start Time Stop Time Status Last Admin Dose Admin Sodium Chloride 1,000 ml @ 999 mls/hr Q1H1M STAT IV 07/19/17 08:31 07/19/17 09:31 DC 07/19/17 08:54 999 MLS/HR Ketorolac Tromethamine (Toradol Inj) 30 mg NOW STAT IV 07/19/17 08:31 07/19/17 08:33 DC 07/19/17 08:53 30 MG Metoclopramide HCl (Reglan Inj) 10 mg NOW STAT IV 07/19/17 08:31 07/19/17 08:33 DC 07/19/17 08:53 10 MG Diphenhydramine HCl (Benadryl Inj) 25 mg NOW STAT IV 07/19/17 08:31 07/19/17 08:33 DC 07/19/17 08:54 25 MG ECG Indication: other (dizziness) Rate (beats per minute): 63 Rhythm: normal sinus Findings: no acute ischemic change, other (normal axis) Comparison ECG Date: 07/17/17 Change: no significant change ED Course 0816: The patient was evaluated in room B10. A complete history and physical exam was performed. 0831: Ordered Benadryl Inj 25 mg IV, Reglan Inj 10 mg IV, Toradol Inj 30 mg IV, Sodium Chloride 1000 ml @ 999 mls/hr IV, Sodium Chloride 1000 ml @ 999 mls/hr IV , Sodium Chloride 1000 ml @ 999 mls/hr IV. 1024: I discussed the patients case with Dr. Schilling, Neurology. She said that the patient was pushing to leave. She states that everything has been done and notes that the viral studies are pending. She states that she was concerned about the patients unsteadiness. She recommends an MRI, the patient can follow up as an outpatient if that comes back negative. She does not believe the patient requires an outright admission at this time. 1045: I reevaluated the patient and he is resting. I updated the patient and his on the treatment plan. They are in agreement. The patient will had an MRI. 1149: I reevaluated the patient and he has many questions regarding the MRI. After discussion, the patient does not wish to have the MRI. He will be discharged shortly. Medical Decision I reviewed the patient's past medical history, medications, and the nursing notes as described above. The patient's presentation and history were concerning for Dehydration, electrolyte abnormality, migraine, viral meningitis, deconditioning, encephalopathy, pneumonia, bronchitis, UTI. The patient is a 49-year-old gentleman with a recent admission for transient global amnesia and presumed viral meningitis on acyclovir presents to the emergency department with vague complaints of persistent headache since his discharge lightheaded and unsteadiness with episodes of sweats last night. History of present illness. On arrival the patient is fatigued appearing but in no acute distress. He is afebrile with stable vital signs. Patient has an equivocal Romberg otherwise is neurologically intact with cerebellar intact finger to nose, alternating palms, heel rebolledo. Stable gait. Labs, CXR unremarkable. Case d/w Dr. Hernandez, neurology, who had followed patient during his inpatient admission, who recommends MRI to r/o worsening meningeal process. d/w patient who was uncertain about getting MRI and initially agree but then decided he felt mildly improved and preferred to give his symptoms more time to improve and expressed understanding that may take time to feel 100 % back to normal. Moreover, patient wavered on whether he symptoms were new or simply a continuation of what he had been feeling for the patient several weeks. Ultimately, he confirmed that these symptoms were not necessarily new. Given the patient is otherwise well-appearing and not demonstrating any concerning exam findings at this time, it is reasonable to have patient f/u outpatient and to continue his current antiviral treatment but with strict return instructions. Findings and plan for follow-up reviewed with patient. Patient agreeable and d/c'd per discharge instructions. Medication Reconcilliation Current Medication List: was personally reviewed by me Consults Time Called: 1020 Consulting Physician: Dr. Schilling, Neurology Returned Call: [phone] I discussed the patients case with Dr. Schilling, Neurology. She said that the patient was pushing to leave. She states that everything has been done and notes that the viral studies are pending. She states that she was concerned about the patients unsteadiness. She recommends an MRI, the patient can follow up as an outpatient if that comes back negative. She does not believe the patient requires an outright admission at this time. Impression Primary Impression: Dizziness Additional Impressions: Headache Nausea Scribe Attestation The scribe's documentation has been prepared under my direction and personally reviewed by me in its entirety. I confirm that the note above accurately reflects all work, treatment, procedures, and medical decision making performed by me. Departure Information Dispostion Home / Self-Care Prescriptions Metoclopramide (Reglan) 10 Mg Tab 10 MG PO Q6H, #15 TAB NAUSEA Prov: Yogesh Bustillos M.D. 07/19/17 Referrals Valentino Fan D.O. (PCP) Carol Patterson M.D. Forms HOME CARE DOCUMENTATION FORM, IMPORTANT VISIT INFORMATION Patient Instructions Dizziness Fainting Poss Causes, ED Meningitis Viral, ED Nausea Vomiting, Headache Pain, My [facility] Additional Instructions Please follow up with your primary care physician tomorrow and with your neurologist, Dr. Hernandez, as scheduled for re-evaluation. The exact cause of your symptoms is unclear at this time but is likely due to your resolving meningitis. Otherwise, your exam, chest xray, and lab results did not show signs of an emergent condition at this time. We recommended a repeat MRI but you preferred to give your symptoms more time to resolve at home and will return if worse for an MRI. Drink plenty of fluids to ensure hydration. Reglan for nausea or headache as needed as directed. Return to the emergency department for worsening symptoms as described in the accompanying instructions. Problem Qualifiers
[2017-07-19 08:57] LABS: BASO % 0.2 %; BASO ABS # 0.01 K/uL (0-0.2); COMPLETE YES; EOS % 1.1 %; HEMATOCRIT 41.9 % (42-52); IG% 0.4 %; LYMPH % 13.4 %; LYMPH ABS # 0.71 K/uL (1.2-3.4); MEAN CELL VOLUME 82.8 fL (80-100); MEAN CORPUSCULAR HEMOGLOBIN 28.7 pg (25-34); MEAN CORPUSCULAR HGB CONC 34.6 g/dl (32-36); MEAN PLATELET VOLUME 11.5 fL (7.4-10.4); MONO % 4.5 %; NEUT % 80.4 %; PLATELET COUNT 115 K/uL (130-400); RED BLOOD COUNT 5.06 M/uL (4.7-6.1)
--- NOTE | 2017-07-19 09:01 | DIAGNOSTIC IMAGING REPORT ---
CHEST ONE VIEW PORTABLE CLINICAL HISTORY: ABDOMINAL PAIN/GI pain. Nausea. COMPARISON STUDY: 07/17/2007 FINDINGS: Small calcific granuloma right base. Lungs otherwise appear clear. Diaphragms are smooth. No evidence for cardiac enlargement. IMPRESSION: No acute process. No change compared to the prior exam. The above report was generated using voice recognition software. It may contain grammatical, syntax or spelling errors. Electronically signed by: Dillan Marie M.D. 07/19/2017 8:59 AM Dictated Date/Time: 07/19/2017 8:59 AM
[2017-07-19 09:13] LABS: ALT/SGPT 32 U/L (12-78); BLOOD UREA NITROGEN 12 mg/dl (7-18); CALCIUM 8.9 mg/dl (8.5-10.1); CARBON DIOXIDE 27 mmol/L (21-32); CHLORIDE 107 mmol/L (98-107); CREATININE 1.02 mg/dl (0.60-1.40); GLUCOSE 173 mg/dl (70-99); POTASSIUM 4.6 mmol/L (3.5-5.1); SODIUM 140 mmol/L (136-145)
[2017-07-19 09:18] LABS: ALKALINE PHOSPHATASE 47 U/L (45-117); AST/SGOT 14 U/L (15-37)
[2017-07-19 10:49] LABS: URINE APPEARANCE CLEAR (CLEAR); URINE BILIRUBIN NEG (NEG); URINE COLOR YELLOW; URINE NITRITE NEG (NEG); URINE SPECIFIC GRAVITY 1.021 (1.000-1.030); UROBILINOGEN NEG (NEG); ZZUR CULT IF INDIC CLEAN CATCH NO
[2017-07-19 10:51] LABS: MANUAL MICROSCOPIC REQUIRED? NO; REVIEW REQ? NO
[2017-07-19] MEDS ORDERED: METF1000 PO (11:19)
[2017-07-19] MEDS ORDERED: ASPEC81 PO (11:19)
[2017-07-19] MEDS ORDERED: METO-157 PO (12:37)
[2017-07-19 13:01] VITALS: BP 149/96
== END 2017-07-19 13:02 | disposition home or self-care (01) ==
LOC: C.EDB 07:31
DX: R42 Dizziness and giddiness (principal); R51 Headache; R11.0 Nausea; R61 Generalized hyperhidrosis; E11.9 Type 2 diabetes mellitus without complications; I10 Essential (primary) hypertension; E78.5 Hyperlipidemia, unspecified; Z79.899 Other long term (current) drug therapy

== ENCOUNTER 2018-12-02 12:20 | Observation (INO) ==
[~2018-12-02 12:20] MED LIST changes: +CEFAZOLIN 2000MG 2,000 MG/15 ML SYR IV SCH; -VALA1TAB2 PO
[2018-12-02] MEDS ORDERED: ONDANSETRON INJ 2 MG/ML 2 ML VIAL IV STA (12:38)
[2018-12-02] MEDS ORDERED: HYDROmorphone INJ 0.5 MG/0.5 ML SYR IV PRN ×2 (12:38→14:16)
[2018-12-02] MEDS ORDERED: SODIUM CHLORIDE 0.9% 1000ML 1,000 ML IV ONE (12:40)
[2018-12-02 12:51] LABS: Basophils # (auto) 0.01 K/uL (0-0.2); Basophils % (auto) 0.2 %; Eosinophils # (auto) 0.17 K/uL (0-0.5); Eosinophils % (auto) 2.6 %; Hematocrit (blood only) 43.7 % (42-52); Hemoglobin 15.7 g/dL (14.0-18.0); Immature Granulocytes # (auto) 0.01 K/uL (0.00-0.02); Immature Granulocytes % (auto) 0.2 %; Lymphocytes # (auto) 1.82 K/uL (1.2-3.4); Mean Corpuscular Hgb Conc 35.9 g/dL (32-36); Mean Corpuscular Volume 80.9 fL (80-100); Mean Platelet Volume 11.8 fL (7.4-10.4); Monocytes # (auto) 0.48 K/uL (0.11-0.59); Monocytes % (auto) 7.4 %; Neutrophils % (auto) 61.6 %; Platelet Count 138 K/uL (130-400); RDW Coefficient of Variation 12.4 % (11.5-14.5); RDW Standard Deviation 36.3 fL (36.4-46.3); White Blood Count 6.49 K/uL (4.8-10.8)
[2018-12-02] MEDS ORDERED: cefTRIAXone SODIUM 1,000 MG/50 ML BAG IV STA (12:51)
--- NOTE | 2018-12-02 13:03 | XRay Report ---
XR knee RT 3V CLINICAL HISTORY: 2 09/27" nail/FB distal femur trauma. Foreign body. COMPARISON: None. DISCUSSION: A metallic nail embedded within the distal femur. No well-defined evidence for fracture. Localized soft tissue edematous change. Joint spaces are well-preserved. No significant joint effusion. There is no evidence for soft tissue swelling. IMPRESSION: Metallic nail embedded within the distal femoral metaphysis. No evidence for fracture. The above report was generated using voice recognition software. It may contain grammatical, syntax or spelling errors. Electronically signed by: Dillan Marie M.D. 12/02/2018 1:02 PM
[2018-12-02 13:11] LABS: BUN Creatinine Ratio 15.8 (10-20); Blood Urea Nitrogen 17 mg/dl (7-18); Calcium 9.4 mg/dl (8.5-10.1); Carbon Dioxide 27 mmol/L (21-32); Chloride 106 mmol/L (98-107); Est GFR (African American) 88.6; Est GFR (Non-African American) 76.4; Glucose 167 mg/dl (70-99); Potassium 3.8 mmol/L (3.5-5.1); Sodium 140 mmol/L (136-145)
[2018-12-02] MEDS ORDERED: DIPHTHERIA/TETANUS/PERTUSSIS 0.5 ML SYR/VIAL IM ONE (13:33)
[2018-12-02] MEDS ORDERED: ONDANSETRON INJ 2 MG/ML 2 ML VIAL IV PRN ×2 (14:10→17:09)
[2018-12-02] MEDS ORDERED: SODIUM CHLORIDE 0.9% 1000ML 1,000 ML IV SCH (14:15)
--- NOTE | 2018-12-02 14:40 | History & Physical Bridge Note ---
Date of Service December 02, 2018 History & Physical Bridge Note I have examined the patient, reviewed the History & Physical and in the interval since the performance of the History & Physical I have noted the following changes of clinical significance: no changes noted
--- NOTE | 2018-12-02 14:42 | XRay Report ---
XR chest 2V routine CLINICAL HISTORY: pre op preoperative evaluation COMPARISON STUDY: 07/19/2017 FINDINGS: The bones soft tissues and hemidiaphragms are normal. The cardiomediastinal silhouette is n ormal. The lungs are clear. The pulmonary vasculature is normal. IMPRESSION: Negative chest. The above report was generated using voice recognition software. It may contain grammatical, syntax or spelling errors. Electronically signed by: Dillan Marie M.D. 12/02/2018 2:41 PM
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
--- NOTE | 2018-12-02 16:00 | Anesthesiology Consultation ---
Date of Service December 02, 2018 Assessment & Plan Chart Review Chart Review: Acceptable Risk for Surgery and Patient NOT seen in Pre Admission Testing Consults Requested none ASA [id number] Proposed Anesthesia Anesthesia Type: General Risk / Benefits Reviewed With: PT / POA / Parent / Guardian, Accepts Plan and Informed Consent Obtained NPO Date Last Intake of Fluids: 12/02/18 Time Last Intake of Fluids: 08:00 Date Last Intake of Solids: 12/02/18 Time Last Intake of Solids: 08:00 History Surgery Operation Date: 12/02/18 13:20 Proposed Procedures p Right Distal Femur Incision and Drainage; - Gaurav Mays DO s Foreign Body Removal - Gaurav Mays DO Height/Weight Height: 1.73 m Weight: 83.915 kg Allergies Allergy/AdvReac Type Severity Reaction Status Date / Time No Known Allergies Allergy Verified 12/02/18 13:37 Medications Home Medications Medication Instructions Recorded Confirmed Last Taken aspirin [Aspirin Low Dose] 81 mg PO DAILY 12/02/18 12/02/18 12/02/18 lisinopril 40 mg PO DAILY 12/02/18 12/02/18 12/02/18 metformin 1,000 mg PO BID 12/02/18 12/02/18 12/02/18 rosuvastatin 10 mg PO DAILY 12/02/18 12/02/18 12/02/18 Active Medications Generic Name Dose Route Start Last Admin Trade Name Freq PRN Reason Stop Dose Admin Hydromorphone HCl 0.5 mg 12/02/18 12:38 12/02/18 13:00 Dilaudid IV 12/16/18 12:37 0.5 mg Q15M PRN Administration Pain Cefazolin Sodium 2,000 mg in 15 mls @ 3.75 mls/min 12/02/18 06:00 12/02/18 14:56 Ancef 2000mg IV 12/03/18 05:59 3.75 mls/min PREOP EDWIN Administration Protocol Past Medical History Medical History HTN (hypertension) (Chronic) HLD (hyperlipidemia) (Chronic) Diabetes mellitus, type II (Chronic) POLA (obstructive sleep apnea) Not compliant with using CPAP Vertigo H/o global transient amnesia about 15 months ago. No other problems since then. Studies did not show any stroke per patient Past Surgical History Surgical History Left upper arm injury S/p surgery Past Anesthesia History No Hx of Anesthesia Complications and No Family Hx of Anesthesia Complications History of PONV No Motion Sickness Screening History of Motion Sickness: No Social History Smoking Status: Never smoker Do You Dip or Chew Tobacco: No Hx Alcohol Use: Yes Alcohol type: beer alcohol intake frequency: a few times a month Hx Substance Use: No Exercise / Class Metabolic Activity II 4-5 Yardwork/Stairs/Walk up hill Physical Exam Vital Signs Last Vital Signs Temp 36.8 C 12/02/18 12:29 Pulse 72 12/02/18 16:16 Resp 19 12/02/18 16:16 BP 154/95 H 12/02/18 16:16 Pulse Ox 99 12/02/18 16:16 ENMT Mouth: + TMJ abnormality (Pain on occasions but never locks up) Thyromental Distance: > or= 3.5 Finger Breadths Neck normal visual inspection; neck extension not limited Respiratory Auscultation: lungs clear to auscultation bilaterally Cardiovascular Rate/Rhythm: regular rate and regular rhythm Psychiatric Orientation: alert and oriented x 3 Testing Electrocardiogram Date: 12/02/18 Findings: + NSR @ (85) Normal sinus rhythm Possible Left atrial enlargement Borderline ECG When compared with ECG of 19-JUL-2017 08:35, No significant change was found Chest X-Ray Date: 12/02/18 Findings: + NAD Laboratory Results 12/02/18 12:40 12/02/18 12:40 Blood Type O Positive 12/02/18 14:30 Antibody Screen NEGATIVE 12/02/18 14:30 PT 10.3 Seconds (9.0-12.0) 12/02/18 12:40 INR 1.0 (0.9-1.1) 12/02/18 12:40
[2018-12-02 16:20] LABS: Prothrombin Time 10.3 Seconds (9.0-12.0)
[2018-12-02] MEDS ORDERED: MIDAZOLAM HCL 1 MG/ML 2ML VIAL ONE (16:54)
[2018-12-02] MEDS ORDERED: PROPOFOL IV EMULSION 10 MG/ML 20 ML VIAL IV ONE (16:54)
[2018-12-02] MEDS ORDERED: fentaNYL citrate 100 MCG/2 ML VIAL ONE ×2 (16:54→17:47)
[2018-12-02] MEDS ORDERED: BACITRACIN INJ 50,000 UNIT VIAL ONE (17:04)
[2018-12-02] MEDS ORDERED: PROMETHAZINE HCL 12.5 MG in SODIUM CHLORIDE 0.9% 50 ML IV PRN (17:09)
[2018-12-02] MEDS ORDERED: fentaNYL citrate 100 MCG/2 ML VIAL IV PRN (17:09)
[2018-12-02] MEDS ORDERED: PHENYLEPHRINE 100MCG/ML 5ML SYR IV PRN (17:09)
[2018-12-02] MEDS ORDERED: ePHEDrine sulfate 50 MG/ML AMP IV PRN (17:09)
[2018-12-02] MEDS ORDERED: ATROPINE SULFATE 0.1 MG/ML 10ML SYR IV PRN (17:09)
[2018-12-02] MEDS ORDERED: HYDROmorphone INJ 1 MG/ML SYRINGE IV PRN (17:09)
[2018-12-02] MEDS ORDERED: BUPIVACAINE 0.5 % 5 MG/1 ML MPF 30ML VIAL ONE (17:37)
[2018-12-02] MEDS ORDERED: KETOROLAC 30 MG/ML VIAL ONE (17:47)
[2018-12-02] MEDS ORDERED: ONDANSETRON INJ 2 MG/ML 2 ML VIAL ONE (17:47)
--- NOTE | 2018-12-02 18:37 | Post Operative Brief Note ---
Immediate Post Op Note v1 Date of Surgery December 02, 2018 Pre & Post Diagnosis Operation Date: 12/02/18 13:20 <No data on this case meets the specified criteria> Procedure Operation Date: 12/02/18 13:20 Actual Procedures p Right Distal Femur Incision and Drainage;(Right) - Gaurav Mays DO s Foreign Body Removal - Gaurav Mays DO Surgeon Gaurav Mays DO Research Engineer [employer] None Estimated Blood Loss 5 Findings Consistent with Post-Op Diagnosis Fluids 1000cc LR Specimens foreign body - nail Anesthesia Type General Complications none Disposition Disposition: Recovery Room Overlapping Procedure I was present for: the critical portions of procedure. I was immediately available: during the entire case. Back up surgeon: was not required during procedure.
--- NOTE | 2018-12-02 18:49 | Fluoroscopy Report ---
FL femur RT 2V CLINICAL HISTORY: RIGHT DISTAL FEMUR FB REMOVAL COMPARISON STUDY: 12/02/2018 FLUOROSCOPY TIME: 15 seconds NUMBER OF FLUOROSCOPIC IMAGES: 6 FINDINGS: Operative removal of the metallic nail within the distal femur. IMPRESSION: Operative removal of the metallic nail within the distal femur. The above report was generated using voice recognition software. It may contain grammatical, syntax or spelling errors. Electronically signed by: Dillan Marie M.D. 12/02/2018 6:48 PM
[2018-12-02] MEDS ORDERED: BUPIVACAINE 0.5 % 5 MG/1 ML MPF 30ML VIAL INFIL ONE (19:03)
--- NOTE | 2018-12-02 19:17 | Anesthesiology Progress Note ---
Date of Service December 02, 2018 Anesthesia Post Procedure Vital Signs Vital Signs: Temp Pulse Pulse Pulse Resp BP BP 12/02/18 19:05 74 10 L 145/88 H 12/02/18 18:55 76 16 147/90 H 12/02/18 18:46 36.0 C L 90 12 143/93 H 12/02/18 16:59 37.0 C 75 18 178/113 H 12/02/18 16:16 72 19 154/95 H 12/02/18 15:27 73 18 175/117 H 12/02/18 13:59 86 16 177/100 H 12/02/18 13:00 12/02/18 12:29 36.8 C 91 H 20 168/99 H Pulse Ox 12/02/18 19:05 100 12/02/18 18:55 100 12/02/18 18:46 99 12/02/18 16:59 100 12/02/18 16:16 99 12/02/18 15:27 98 12/02/18 13:59 99 12/02/18 13:00 99 12/02/18 12:29 98 Pain Intensity Right Thigh: Pain Intensity: 4 Notes Mental Status: alert / awake / arousable Patient Amnestic to Procedure: Yes Nausea / Vomiting: adequately controlled Pain: adequately controlled Airway Patency, RR, SpO2: stable & adequate BP & HR: stable & adequate Hydration State: stable & adequate Anesthetic Complications: no major complications apparent
[2018-12-02] MEDS ORDERED: MoRPHine SULFATE 2 MG/ML CARP IV PRN (19:51)
[2018-12-02] MEDS ORDERED: OXYCODONE HCL IR 5 MG TAB (IMMEDIATE RELEASE) PO PRN (19:51)
[2018-12-02] MEDS ORDERED: KETOROLAC 30 MG/ML VIAL IV PRN (19:51)
[2018-12-02] MEDS ORDERED: MAGNESIUM HYDROXIDE SUSP 30 ML UDC PO PRN (19:51)
--- NOTE | 2018-12-02 21:39 | Orthopedic Progress Note ---
Date of Service December 02, 2018 Assessment & Plan (1) Foreign body in right lower extremity: s/p ROBY, I+D R distal femur -ancef x 24 -DVT ppx ASA 81 BID -WBAT RLE -PT/OT -AM labs -DC planning - Home with self care, PO ABX Subjective Post Operative Progress Note Patient seen in PACU laying in bed, comfortable, denies complaints, pain well controlled, no acute issues. Physical Exam Vital Signs (Past 24 Hours): Last Vital Signs Temp 36.5 C 12/02/18 20:52 Pulse 67 12/02/18 20:52 Resp 18 12/02/18 20:52 BP 133/85 12/02/18 20:52 Pulse Ox 95 12/02/18 20:52 Physical Exam: RLE NVSI +EHL/FHL/TA/GS SILT grossly, +2 DP pulse, compartments soft NT, dressing cdi. (1) Foreign body in right lower extremity Encounter type: initial encounter Qualified Code(s): S80.851A - Superficial foreign body, right lower leg, initial encounter
[2018-12-02] MEDS: ACETAMINOPHEN 500 MG TAB PO SCH (21:56)
[2018-12-02] MEDS: CEFAZOLIN 2000MG 2,000 MG/15 ML SYR IV SCH (21:56)
[2018-12-03] MEDS: ACETAMINOPHEN 500 MG TAB PO SCH (05:35)
[2018-12-03] MEDS: CEFAZOLIN 2000MG 2,000 MG/15 ML SYR IV SCH (05:42)
--- NOTE | 2018-12-03 07:47 | Orthopedic Progress Note ---
Date of Service December 03, 2018 Assessment & Plan (1) Foreign body in right lower extremity: POD 1 s/p ROBY, I+D R distal femur -ancef x 24 -DVT ppx ASA 81 BID -WBAT RLE -PT/OT -AM labs -DC planning - Home with self care, PO ABX Subjective POD 1 s/p Foreign body removal right knee Pt sitting up in bed. Pain controlled. States he was up ambulating the hallway this AM WBAT without difficulty. No complaints this AM. Physical Exam Vital Signs (Past 24 Hours): Last Vital Signs Temp 36.6 C 12/03/18 07:32 Pulse 64 12/03/18 07:32 Resp 16 12/03/18 07:32 BP 149/98 H 12/03/18 07:32 Pulse Ox 96 12/03/18 07:32 Physical Exam: Dressings C/D/I. Calves soft, NT. NV intact. (1) Foreign body in right lower extremity Encounter type: initial encounter Qualified Code(s): S80.851A - Superficial foreign body, right lower leg, initial encounter
[2018-12-03] MEDS ORDERED: METFORMIN HCL 500 MG TAB PO SCH (08:00)
--- NOTE | 2018-12-03 08:45 | Anesthesiology Progress Note ---
Date of Service December 03, 2018 Anesthesia Post Procedure Vital Signs Vital Signs: Temp Pulse Pulse Pulse Pulse Resp BP 12/03/18 07:32 36.6 C 64 16 12/03/18 03:41 36.8 C 65 18 12/02/18 22:52 36.6 C 64 17 12/02/18 21:50 36.7 C 66 17 12/02/18 20:52 36.5 C 67 18 12/02/18 20:19 36.5 C 69 16 12/02/18 19:57 36.9 C 68 18 12/02/18 19:35 69 16 12/02/18 19:25 36.5 C 68 20 12/02/18 19:15 72 12 12/02/18 19:05 74 10 L 12/02/18 18:55 76 16 12/02/18 18:46 36.0 C L 90 12 12/02/18 16:59 37.0 C 75 18 12/02/18 16:16 72 19 12/02/18 15:27 73 18 12/02/18 13:59 86 16 12/02/18 13:00 12/02/18 12:29 36.8 C 91 H 20 168/99 H BP Pulse Ox 12/03/18 07:32 149/98 H 96 12/03/18 03:41 135/86 98 12/02/18 22:52 137/84 97 12/02/18 21:50 126/77 96 12/02/18 20:52 133/85 95 12/02/18 20:19 151/88 H 97 12/02/18 19:57 153/87 H 97 12/02/18 19:35 141/89 H 97 12/02/18 19:25 142/90 H 98 12/02/18 19:15 134/82 98 12/02/18 19:05 145/88 H 100 12/02/18 18:55 147/90 H 100 12/02/18 18:46 143/93 H 99 12/02/18 16:59 178/113 H 100 12/02/18 16:16 154/95 H 99 12/02/18 15:27 175/117 H 98 12/02/18 13:59 177/100 H 99 12/02/18 13:00 99 12/02/18 12:29 98 Notes Mental Status: alert / awake / arousable and participated in evaluation Nausea / Vomiting: adequately controlled Pain: adequately controlled Airway Patency, RR, SpO2: stable & adequate BP & HR: stable & adequate Hydration State: stable & adequate
[2018-12-03] MEDS ORDERED: ROSUVASTATIN CALCIUM 10 MG TAB PO SCH (09:00)
[2018-12-03] MEDS ORDERED: MULTIVITAMIN TAB PO SCH (09:00)
[2018-12-03] MEDS ORDERED: ASPIRIN 81 MG ECTAB PO SCH (09:00)
[2018-12-03] MEDS ORDERED: LISINOPRIL 40 MG TAB PO SCH (09:00)
[2018-12-03 10:17] LABS: Hemoglobin 14.2 g/dL (14.0-18.0); Mean Corpuscular Hgb Conc 34.6 g/dL (32-36); Mean Corpuscular Volume 83.2 fL (80-100); RDW Coefficient of Variation 12.7 % (11.5-14.5); RDW Standard Deviation 38.4 fL (36.4-46.3); Red Blood Count 4.93 M/uL (4.7-6.1); White Blood Count 6.63 K/uL (4.8-10.8)
[2018-12-03 10:32] LABS: Calcium 8.3 mg/dl (8.5-10.1); Creatinine Clr Calc Pharmacy 78.4 ml/min; Est GFR (African American) 87.6; Est GFR (Non-African American) 75.6; Potassium 4.1 mmol/L (3.5-5.1)
[2018-12-03 10:46] LABS: Mean Platelet Volume 12.2 fL (7.4-10.4); Platelet Count 126 K/uL (130-400)
[2018-12-03 11:30] LABS: Basophils # (auto) 0.01 K/uL (0-0.2); Basophils % (auto) 0.2 %; Eosinophils # (auto) 0.11 K/uL (0-0.5); Eosinophils % (auto) 1.7 %; Immature Granulocytes # (auto) 0.01 K/uL (0.00-0.02); Immature Granulocytes % (auto) 0.2 %; Lymphocytes # (auto) 1.32 K/uL (1.2-3.4); Lymphocytes % (auto) 19.9 %; Monocytes # (auto) 0.56 K/uL (0.11-0.59); Monocytes % (auto) 8.4 %; Neutrophils # (auto) 4.62 K/uL (1.4-6.5); Neutrophils % (auto) 69.6 %
--- NOTE | 2018-12-03 16:59 | Operative Report ---
Post Operative Report Pre & Post Diagnosis Operation Date: 12/02/18 13:20 Pre-Op Diagnosis: foreign body right distal femur Post-Op Diagnosis: foreign body distal right femur Procedure Operation Date: 12/02/18 13:20 Actual Procedures p foreign body removal right distal femur with irrigation and debridement(Right) - Gaurav Mays DO s Foreign Body Removal, right distal femur with irrigation and debridement - Gaurav Mays DO Surgeon Gaurav Mays DO Production Sampler None Estimated Blood Loss 5 Findings Consistent with Post-Op Diagnosis Specimens foriegn body - nail Anesthesia Type General Complications none Indications The patient is a 58-year-old white male who states that today he was starting to climb up a ladder to go up on to his roof. He was holding a pneumatic nail gun. As he got up into the second rung, he had slipped and clenched his hand to regain his balance and inadvertently fired a nail into his distal femur. The nail went in on the anterolateral aspect of the thigh and he was obviously having pain and difficulty ambulating with this. The nail went in up to the level of the skin and tented the skin somewhat per the patient. He was brought to the ED where he was seen by the staff. X-rays were taken and we have been asked to see him for his injury. I have indicated the patient for removal of foreign body, I+D possible wash out of the knee. The risks, benefits, complications, alternatives were explained in detail which include however not limited to infection, blood loss, blood clots, injury to nerves, bone, soft tissue, vessels, arthrofibrosis, chronic pain, need for repeat surgery, cardiac and pulmonary events and . The patient wished to proceed with surgical intervention at this time and informed consent was obtained. Description of Procedure The patient was brought to the operating room and placed in the supine position on the operating room table. Following induction of general anesthesia, a tourniquet was applied to the proximal aspect of the thigh and the patient's right leg was prepped and draped in the usual sterile manner with Betadine. A timeout was performed, patient and site nicole verified. Appropriate pre- operative IV antibiotics were verified and given. The limb was elevated for 5 minutes and the tourniquet was inflated to 300 mmHg. C-arm fluoroscopy was positioned across from the operative leg and XRs taken of the knee verifying foreign body position just proximal and lateral to the proximal pole of the patella. The foreign body was seen entering the distal femur cortex and was without fracture at that site. Utilizing a #10 scalpel blade, a lognitudinal incision though skin and subcutaneous tissue was made 1 cm proximal and distal to the puncture site. Homeostasis was achieved with electrocautery. Disection was carried down along the nail to bone. The nail was noticeably loose. Using vice remedial reading teacher the nail was removed from the bone in it's entirety. XRs were taken demonstrating complete removal without any residual foreign body. The skin edges were debrided of friable tissue with #10 scalpel blade and the soft tissue was carefully retracted with kaiser retractors. Utilizing a small curette the bone entrance was debrided. Next, utilzing a 60cc syringe and 18 guage needle 180cc of sterile saline was injected laterally into the knee joint. No appreciable fluid was extravagated into the wound bed. The fluid was aspirated from the joint in it's entirety and the wound was irrigated with copious amounts of sterile saline solution with bacitracin, 3L in total. Next I injected the wound and subcutaneous tissues with .5% Marcaine without epi, 20 cc in total. Subcutaneous closure was performed with 2-0 Vicryl suture and skin closure was performed with 3-0 nylon suture in a horizontal mattress fashion. There was good eversion of the skin edges. Sterile dressings were applied at this time which included Xeroform 4 x 4's ABD, webril, Manjit wrap. The tourniquet was deflated at 31 minutes. The patient tolerated the procedure well and was taken to the PACU in stable condition. I attest to the content of the Intraoperative Record and any orders documented therein. Any exceptions are noted below.
--- NOTE | 2018-12-03 20:24 | Discharge Summary ---
Date of Service December 03, 2018 Principal Diagnosis Foreign body left distal femur Discharge Exam RLE NVSI +EHL/FHL/TA/GS SILT grossly, +2 DP pulse, compartments soft NT, dressing cdi. Constitutional WD/WN, vitals as above Discharge Data Allergies Allergy/AdvReac Type Severity Reaction Status Date / Time No Known Allergies Allergy Verified 12/02/18 13:37 Consultations 12/02/18 19:51 Consult Case Management - Discharge Planning Routine Procedures Performed Operation Date: 12/02/18 13:20 Actual Procedures p foreign body removal right distal femur with irrigation and debridement(Right ) - Gaurav Mays DO s Foreign Body Removal, right distal femur with irrigation and debridement - Gaurav Mays DO Ordered Studies 12/02/18 17:17 FL fluoroscopy <1hr Routine 12/02/18 17:19 FL femur RT 2V Routine Hospital Course (1) Foreign body in right lower extremity: The patient is a 58 -year-old male who presents with injury to his right distal femur with retained foreign body. I indicated the patient for removal of hardware, I+D of right distal femur, the risks, benefits and complications of the procedure include but not limited to infection, bleeding, damage to bone, nerves, vessels, surrounding soft tissue, may develop blood clots, loss of function, chronic pain, the need for additional surgery and . The patient wished to proceed with surgery at this time and informed consent was obtained. Hospital Course: On 12/02/18 the patient was taken to the operating room, adequate anesthesia administered and underwent removal of hardware and I+D of right distal femur. The patient tolerated the procedure well and was taken to the PACU in stable condition. Post-operatively the patient was started on a DVT ppx medication and given appropriate IV antibiotics. Consults were placed to physical therapy, occupational therapy and case management. On POD#1, the patient did well overnight and their pain was well controlled. Labs were drawn and the Hgb was 14.2. The patient progressed well with PT. The patients hospital stay was relatively uneventful and they were deemed stable by the orthopedic team and consultants to be discharged home on 12/03/18. Discharge Instructions: Upon discharge the patient may weight bear as tolerates through their operative extremity with crutches. They were instructed to keep the incision clean and dry at all times. Dressings may be removed after 48-72 hours and may shower but no bathing, pools or hot tubs. The patient was given a script for pain medication and should take as instructed. The patient was given a script for Bactrim DS x 14 days. The patient was given a script for DVT ppx ASA BID and should take as directed. The patient was instructed to not drive or travel for long distances until cleared to do so. If the patient develops any symptoms of fevers, chills, nausea, vomiting, increased redness, swelling, pain or drainage from the surgical site, they should notify the office and/or proceed to the nearest emergency room. The patient should follow up in 10-14 days after surgery for their routine post-operative follow-up appointment and should call the office to confirm the date and time. POD 1 s/p ROBY, I+D R distal femur -ancef x 24 -DVT ppx ASA 81 BID -WBAT RLE -PT/OT -AM labs -DC planning - Home with self care, PO ABX Total Time Total Time Spent Total Time Spent (In Minutes): >60 minutes Discharge Plan Discharge Items Patient Disposition: Home - Self-Care Reason For Visit: FOREIGN BODY IN RIGHT KNEE JOINT Discharge Diagnosis: Foreign Body Right Knee Discharge Goals: Decrease discomfort and Improve function Activity: Per 'Additional Instructions' section Weightbearing: Right weightbearing Weightbearing Comment: as tolerated with crutches Non-emergency contact: Surgeon Call non-emergency contact if: your pain is not controlled, your temperature is above 101.5, your wound has increased redness and your wound has increased drainage Follow-up/Referrals: Valentino Fan, DO [Primary Care Provider] - Diet: Carb Consistent or DM2 Addtl Provider Instructions: Weightbearing as tolerated. Limit your activity the first 48 hours. Then increase your activity as able. You may do gentle range of motion exercises with the knee. Elevate the knee on 1 or 2 pillows Ice to the knee regularly for the first 48 hours, then as needed. If swelling persists, continue the ice packs. Keep dressing clean and dry. Change dressing 12/04/17. Change dressing daily for 5 days, then every other day. Continue to use the Manjit wrap for compression. You may get the wound wet in 72 hours. Do not soak it, No tub baths, No swimming pools or hot tubs until told otherwise by your Doctor. Return to work in 1 week. Follow up with Dr Mays in 10 days. Call for an appointment. [phone] Prescriptions: New aspirin [Ecotrin Low Strength] 81 mg Tablet,Delayed Release (Dr/Ec) 81 mg PO BID 28 Days Qty: 56 RF: 0 oxycodone 5 mg Tablet 5 mg PO Q6H MDD 6 tabs PRN (Reason: pain) Qty: 30 RF: 0 sulfamethoxazole-trimethoprim [Bactrim DS] 800-160 mg tablet 1 tab PO Q12H Qty: 28 RF: 0 Continued metformin 1,000 mg Tablet 1,000 mg PO BID RF: 0 lisinopril 40 mg Tablet 40 mg PO DAILY RF: 0 rosuvastatin 10 mg Tablet 10 mg PO DAILY RF: 0 Discontinued aspirin [Aspirin Low Dose] 81 mg Tablet,Delayed Release (Dr/Ec) 81 mg PO DAILY RF: 0 Stand-Alone Forms: [facility] Discharge Orders: Discharge Order (Routine); Ordered 12/03/18 Ordered By: uRslan Ho Admission Data Admit Date/Time: 12/02/18 19:46 Attending Provider: Gaurav Mays Admit Provider: Gaurav Mays Primary Care Provider: Valentino Fan Service: Medical Other Interventions: Discharge Summary Assessment (RN) Last Done: 12/03/18 09:43 DC Date/Time DO NOT enter until pt leaves facility: 12/03/18 11:18
[2018-12-04] MEDS ORDERED: CeleBREX 200 MG CAP PO SCH (21:00)
== END 2018-12-03 11:18 | disposition home or self-care (01) ==
LOC: ED 12:20 → 3W 16:45 → ASU 16:45